=== PATIENT | female | born 1965 | race Two or more races ===

== ENCOUNTER 2024-10-28 13:30 | Outpatient (AMB) | payer MEDICARE, MEDICAID, SELFPAY ==
[2024-10-28 13:38] VITALS: BP 110/71; PULSE 75; RESP 18; TEMP 36.5; O2SAT 93; BMI 39.5
--- NOTE | 2024-10-28 13:38 | PD.RESCLINIC ---
Vital Signs 10/28/24 13:38 Height 1.6 m Height Method Stated Weight 101.151 kg Weight Measurement Method Standing Scale BMI 39.5 BP 110/71 Blood Pressure Source Automatic Cuff Blood Pressure Location Left Upper Arm Position Sitting Respiration 18 Pulse 75 Pulse Source Monitor Temp 97.7 F Temp Source Oral Pulse Oximetry (%) 93 L Oxygen Delivery Method Room Air Allergies/Meds Allergies & Medications Allergies iodine Allergy (Severe, Verified 10/28/24 13:39) Rash Medication Reconciliation ibuprofen 800 mg tablet 800 mg PO TID PRN pain #30 tabs 08/07/23 [Rx Confirmed 10/28/24] diltiazem HCl 180 mg capsule,24 hr,extended release 180 mg PO QAM 06/03/24 [History Confirmed 10/28/24] polyethylene glycol 3350 17 gram oral powder packet 17 g PO QDAY 08/05/24 [History Confirmed 10/28/24] cetirizine 10 mg tablet 10 mg PO QDAY #30 tabs 09/02/24 [Rx Confirmed 10/28/24] cholecalciferol (vitamin D3) 25 mcg (1,000 unit) capsule 25 mcg PO QDAY #30 caps 10/28/24 [Rx] pantoprazole 40 mg tablet,delayed release (Protonix) 40 mg PO QDAY #30 tabs 10/28/24 [Rx] propranolol 20 mg tablet 20 mg PO BID #30 tabs 10/28/24 [Rx] MA Intake Visit Data Collection New Patient or Established: Established Patient (seen at [facility] within 3 years) Seen by Clinical Staff ONLY (RN/MA): No Pain Present Currently: Yes Pain Location: Generalized Pain scale:: 6 Pain Scale Used: [place]es-[place]ial[place]/Numerical PCP or OBGYN visit in last 3 months: Yes Do You Feel Safe at Home: Yes Authorities Contacted: N/A Smoking Status Smoking Status: Never smoker Immunization / Flu Flu Vaccine in the Last 12 Months: No Flu Vaccine Exclusion Criteria: No Exclusion Criteria Past Medical History Past Medical History NEUROLOGIC: Positive Migraine; Negative Neurological Disorders or Seizures CARDIAC: Positive Cardiac Disorders and Hypertension; Negative Congestive Heart Failure, Edema or Cellulitis RESPIRATORY: Positive Asthma, Bronchitis, Pneumonia, Tuberculosis (was treated) and Sleep Apnea; Negative Chronic Obstructive Pulmonary Disease (COPD) GASTROINTESTINAL: Positive Gastrointestinal Disorders (pain right abdomen had ultrasound yesterday), Diverticulitis, Diverticulosis, Gastroesophageal Reflux Disease and Obesity; Negative Hepatitis GENITOURINARY: Negative Genitourinary Disorders or Renal Disease REPRODUCTIVE: Positive Previous Pregnancies; Negative Pelvic Inflammatory Disease MUSCULOSKELETAL: Positive Arthritis and Degenerative Disk Disease ENDOCRINE: Negative Endocrine Disorders, Diabetes Mellitus Type 1 or Diabetes Mellitus Type 2 HEMATOLOGIC: Positive Blood Disorders and Anemia; Negative Sickle Cell Disease PSYCHO/SOCIAL: Positive Anxiety (no meds) OTHER HISTORY: Positive Hospitalization (diverticulosis) and Chicken Pox; Negative Autoimmune Disease, Shingles, Falls, Blood Transfusions, Blood Transfusion Reaction, Anesthesia Reactions, Chemotherapy, Radiation Therapy, MRSA, Measles, Mumps or Cancer Family History FAMILY HISTORY: Positive Family Cancer; Negative Family Psychiatric Problems, Family Respiratory Disorders, Family Cardiac Disorders, Family Gastrointestinal Problems, Family Surgery or Family Anesthesia Reaction Surgical History SURGICAL: Positive Lumpectomy, Tubal Ligation and Section (2); Negative Pacemaker or Joint Replacement Social History SMOKING STATUS: Smoking status: Never smoker ALCOHOL: Alcohol Intake: Never HOUSING: Housing: House Patient Portal Questionaires Social History Living Situation History Housing: House Tobacco History Smoking Status: Never smoker Alcohol History Alcohol Intake: Never Domestic Abuse History Do You Feel Safe at Home: Yes Review of Systems Report any current symptoms Only answer those that you have currently: Past Medical History Past Medical History Have you ever been diagnosed with any of the following: Neurological Problems Seizures: No Migraine: Yes Cardiology Problems Congestive Heart Failure: No Edema: No Cellulitis: No Hypertension: Yes Respiratory Problems Chronic Obstructive Pulmonary Disease (COPD): No Asthma: Yes Bronchitis: Yes Pneumonia: Yes Tuberculosis: Yes (was treated) Sleep Apnea: Yes Stomache/Intestinal Problems Hepatitis: No Diverticulitis: Yes Diverticulosis: Yes Gastroesophageal Reflux Disease: Yes Obesity: Yes Genital/Urinary Problems Renal Disease: No Reproductive Problems Pelvic Inflammatory Disease: No Previous Pregnancies: Yes Musculoskeletal Problems Arthritis: Yes Degenerative Disk Disease: Yes Endocrine Problems Diabetes Mellitus Type 1: No Diabetes Mellitus Type 2: No Blood Problems Anemia: Yes Sickle Cell Disease: No Psychologic Problems Anxiety: Yes (no meds) Other Problems Hospitalization: Yes (diverticulosis) Autoimmune Disease: No Shingles: No Falls: No Blood Transfusions: No Blood Transfusion Reaction: No Anesthesia Reactions: No Chemotherapy: No Radiation Therapy: No MRSA: No Chicken Pox: Yes Measles: No Mumps: No Cancer: No Surgical History Pacemaker: No History of Present Illness HPI Narrative Ms Edie Rizo is a 60 year old female with past medical history of arthritis, HTN on diltiazem, migraines on propanolol, pre-diabetic, asthma, sleep apnea, and fibroids who presents to the clinic to establish care. 08/05/2024: Patient complains of RUQ pain for many years, worst over the last few months. Radiates towards epigastric region. Pain described is constant, with intermittent sharp quality. Sometimes worst after meeting, now without trigger. Associated with nausea, loose stools, floating stool. Was evaluated with an ultrasound in the past and was told had a large and fatty liver. Had bloodwork and was prescribed a medication but never received or picked up. Also complains of burning sensation in her thigh and feet, causing difficulty walking.FH: pancreatic cancer 09/02/2024 Patient is present with niece, Adele. She allows permission for discussion of her current medical conditions with niece in the room.She no longer has any more abdominal pain. Dr. Lanza referred patient to us. She was unable to get an ultrasound of her gallbladder, she believes insurance denied it. She was diagnosed with fibroids not too long ago. Her shipper/receiver did a scrapping procedure and her fibroid associated bleeding resolved. Now, patient no long has abdominal pain or discomfort. Patient also feeling her nerve pain is improving on gabapentin, only endorses numbness of of left hand and 3rd left finger, possible component of carpal tunnel. Patient denies, fever, chills, chest pain, palpitation, shortness of breath, dizziness, nausea, vomiting, diarrhea, or constipation. Will recommend to continue pantoprazole and cock splint for carpal tunnel. 10/28/2024: Patient doing well, endorses occasional burning sensation from GERD after eating and before going to bed. Improved with protonix but patient ran out. Will refill protonix and consider GI consult if symptoms do not improve for possible endoscopy and evaluation. Patient also started [employer] by her [employer] clerk and has had some success on it. Patient also completed 6 week sof physical therapy which she improved her mobility. Ultrasound of the abdomen showed adrenal mass, generally unchanged size from previous scans. Will continue to monitor. Review of Systems Review of Systems Systems Reviewed: All systems reviewed, normal except as documented Objective/Exam Narrative Physical exam: Constitutional: NAD. HEENT: NCAT. Vision grossly intact. Respiratory: CTAB bilaterally. Cardiac: RRR. Abdomen: Soft, non-distended, non-tender. No guarding, no rebound. MSK: No B/L LE edema. Skin: Warm, dry, intact. No obvious lesions. Neuro: Motor and sensation grossly intact. Psychiatric: Appropriate mood and affect. Assessment & Plan Diagnosis / Problem List (1) GERD (gastroesophageal reflux disease): Status: Acute Assessment & Plan: Differential includes GERD (more likely improved on pantoprazole) vs PUD, hiatal hernia Possible etiology of H. pylori. History suggestive of GERD with burning at night in her esophagus, relieved with pantoprazole. Patient sometimes burps and feels filled with gas. Trial protonix helped to confirm GERD. Chem panel 1 month ago not suggestive of obstructive biliary pattern, cholecystitis ruled out. Past colonoscopy in 2019 showed diverticulosis, hemrrhoids, and 1 benign polyp. Amylase is normal. On ibuprofen for arthritis Plan: Refill protonix 40mg Qday. Counselled on diet, avoiding acidic foods, eating before bed or lying down after eating. If symptoms persist, consider GI referral (2) Transaminitis: Status: Acute Assessment & Plan: MASH (nonalcohol related fatty liver disease) is likely in setting of obesity. As seen on previous labs, medications reviwed for hepatotoxic side effects. Denies history alcohol Hepatitis panel nonreactive. Plan: Check LFTs Check lipid panel as well (3) Neuropathy: Status: Chronic Assessment & Plan: History of L5-S1 3 mm right paracentral disc bulge displacing the right S1 nerve root, but patient having bilateral feet and thigh pain. Long-standing pre-diabetic. Plan: Check A1c, no A1c on file Gabapentin refilled (4) Adrenal mass 1 cm to 4 cm in diameter: Status: Chronic Assessment & Plan: 3.5cm unchanged in size from 2018 to 2023 Ultrasound done 09/2024 shows size 4.2 x 3.1 x 3.7 cm Patient asymptomatic Plan: Continue to monitor with radiographic studys every 6 months for 2 years If patient develops symptoms and/or mass begins to grow, consider MRI and additional endocrinology workup Orders: Orders Liver Panel 10/28/24 R74.01 - Elevation of levels of liver transaminase levels Ambulatory Hemoglobin A1C 10/28/24 G62.9 - Polyneuropathy, unspecified Lipid Panel 10/28/24 K76.0 - Fatty (change of) liver, not elsewhere classified, R74.01 - Elevation of levels of liver transaminase levels Additional Assessment Attending note: I, Jairo Salter MD, attest that I was physically present for the dorman portions of the service and evaluated the patient with the resident and I reviewed and discussed the case with the resident and agree with the resident's findings and plans of care as documented above. Improvement in GERD symptoms with PPI, continue for now. Will recheck labs. Continue to follow adrenal adenoma. Jairo Salter MD Physician Billing Established Patient Established Patient: E/M Level 3-CPT 68272 Office Procedures [facility] Level of Care Nursing/Assessment Patient Status: Established Patient Nursing Assessment/Reassessment: Medication Reconciliation, Update PMH in EMR and Vital Signs Coordination of Care: Complex Care and Chronic Disease 1-5, Education Complex Pt/Fam, Results/Orders obtained and Staff clarify orders Established Patient Charge Established Patient Point Assignment: 90 Established Patient Point Charge: EP Level 3 (80-115)
== END 2024-10-28 14:28 | disposition home or self-care (01) ==
LOC: HODAHC 13:30
PROVIDERS: PCP Student in an Organized Health Care Education/Training Program; Referring Provider Student in an Organized Health Care Education/Training Program; Supervising Provider Internal Medicine; Visit Provider Student in an Organized Health Care Education/Training Program
DX: K21.9 Gastro-esophageal reflux disease without esophagitis (principal); R74.01 Elevation of levels of liver transaminase levels; G62.9 Polyneuropathy, unspecified; E27.8 Other specified disorders of adrenal gland
CPT/HCPCS: 99213; G0463

== ENCOUNTER 2024-12-31 11:07 | Outpatient (AMB) | payer MEDICARE, MEDICAID, SELFPAY ==
[2024-12-31 11:23] VITALS: BP 122/81; PULSE 81; RESP 16; TEMP 36.4; O2SAT 95; BMI 38.5
--- NOTE | 2024-12-31 11:23 | ACNOTE_ITS ---
Vital Signs 12/31/24 11:23 Height 1.6 m Height Method Stated Weight 98.486 kg Weight Measurement Method Standing Scale BMI 38.5 BP 122/81 Blood Pressure Source Automatic Cuff Blood Pressure Location Left Upper Arm Position Sitting Respiration 16 Pulse 81 Pulse Source Monitor Temp 97.5 F Temp Source Oral Pulse Oximetry (%) 95 Oxygen Delivery Method Room Air Allergies/Meds Allergies & Medications Allergies iodine Allergy (Severe, Verified 12/31/24 11:24) Rash Medication Reconciliation ibuprofen 800 mg tablet 800 mg PO TID PRN pain #30 tabs 08/07/23 [Rx Confirmed 12/31/24] diltiazem HCl 180 mg capsule,24 hr,extended release 180 mg PO QAM 06/03/24 [History Confirmed 12/31/24] polyethylene glycol 3350 17 gram oral powder packet 17 g PO QDAY 08/05/24 [History Confirmed 12/31/24] cetirizine 10 mg tablet 10 mg PO QDAY #30 tabs 09/02/24 [Rx Confirmed 12/31/24] cholecalciferol (vitamin D3) 25 mcg (1,000 unit) capsule 25 mcg PO QDAY #30 caps 10/28/24 [Rx Confirmed 12/31/24] pantoprazole 40 mg tablet,delayed release (Protonix) 40 mg PO QDAY #30 tabs 10/28/24 [Rx Confirmed 12/31/24] propranolol 20 mg tablet 20 mg PO BID #30 tabs 10/28/24 [Rx Confirmed 12/31/24] acetaminophen 500 mg tablet 500 mg PO Q6H PRN Pain #30 tabs 12/31/24 [Rx] celecoxib 100 mg capsule 100 mg PO BID PRN breakthrough pain, severe #20 caps 12/31/24 [Rx] MA Intake Visit Data Collection New Patient or Established: Established Patient (seen at [facility] within 3 years) Seen by Clinical Staff ONLY (RN/MA): No Pain Present Currently: Yes Pain Location: Back Pain scale:: 6 Pain Scale Used: [employer]/Numerical Agricultural Engineering Technologist Required: No PCP or OBGYN visit in last 3 months: Yes Hx Now: No Do You Feel Safe at Home: Yes Authorities Contacted: N/A Smoking Status Smoking Status: Never smoker Immunization / Flu Flu Vaccine in the Last 12 Months: No Flu Vaccine Exclusion Criteria: No Exclusion Criteria Past Medical History Past Medical History NEUROLOGIC: Positive Migraine; Negative Neurological Disorders or Seizures CARDIAC: Positive Cardiac Disorders and Hypertension; Negative Congestive Heart Failure, Edema or Cellulitis RESPIRATORY: Positive Asthma, Bronchitis, Pneumonia, Tuberculosis (was treated) and Sleep Apnea; Negative Chronic Obstructive Pulmonary Disease (COPD) GASTROINTESTINAL: Positive Gastrointestinal Disorders (pain right abdomen had ultrasound yesterday), Diverticulitis, Diverticulosis, Gastroesophageal Reflux Disease and Obesity; Negative Hepatitis GENITOURINARY: Negative Genitourinary Disorders or Renal Disease REPRODUCTIVE: Positive Previous Pregnancies; Negative Pelvic Inflammatory Disease MUSCULOSKELETAL: Positive Arthritis and Degenerative Disk Disease ENDOCRINE: Negative Endocrine Disorders, Diabetes Mellitus Type 1 or Diabetes Mellitus Type 2 HEMATOLOGIC: Positive Blood Disorders and Anemia; Negative Sickle Cell Disease PSYCHO/SOCIAL: Positive Anxiety (no meds) OTHER HISTORY: Positive Hospitalization (diverticulosis) and Chicken Pox; Negative Autoimmune Disease, Shingles, Falls, Blood Transfusions, Blood Transfusion Reaction, Anesthesia Reactions, Chemotherapy, Radiation Therapy, MRSA, Measles, Mumps or Cancer Family History FAMILY HISTORY: Positive Family Cancer; Negative Family Psychiatric Problems, Family Respiratory Disorders, Family Cardiac Disorders, Family Gastrointestinal Problems, Family Surgery or Family Anesthesia Reaction Surgical History SURGICAL: Positive Lumpectomy, Tubal Ligation and Section (2); Negative Pacemaker or Joint Replacement Social History SMOKING STATUS: Smoking status: Never smoker ALCOHOL: Alcohol Intake: Never HOUSING: Housing: House Patient Portal Questionaires Social History Living Situation History Housing: House Tobacco History Smoking Status: Never smoker Alcohol History Alcohol Intake: Never Domestic Abuse History Do You Feel Safe at Home: Yes Review of Systems Report any current symptoms Only answer those that you have currently: Past Medical History Past Medical History Have you ever been diagnosed with any of the following: Neurological Problems Seizures: No Migraine: Yes Cardiology Problems Congestive Heart Failure: No Edema: No Cellulitis: No Hypertension: Yes Respiratory Problems Chronic Obstructive Pulmonary Disease (COPD): No Asthma: Yes Bronchitis: Yes Pneumonia: Yes Tuberculosis: Yes (was treated) Sleep Apnea: Yes Stomache/Intestinal Problems Hepatitis: No Diverticulitis: Yes Diverticulosis: Yes Gastroesophageal Reflux Disease: Yes Obesity: Yes Genital/Urinary Problems Renal Disease: No Reproductive Problems Pelvic Inflammatory Disease: No Previous Pregnancies: Yes Musculoskeletal Problems Arthritis: Yes Degenerative Disk Disease: Yes Endocrine Problems Diabetes Mellitus Type 1: No Diabetes Mellitus Type 2: No Blood Problems Anemia: Yes Sickle Cell Disease: No Psychologic Problems Anxiety: Yes (no meds) Other Problems Hospitalization: Yes (diverticulosis) Autoimmune Disease: No Shingles: No Falls: No Blood Transfusions: No Blood Transfusion Reaction: No Anesthesia Reactions: No Chemotherapy: No Radiation Therapy: No MRSA: No Chicken Pox: Yes Measles: No Mumps: No Cancer: No Surgical History Pacemaker: No History of Present Illness HPI Narrative Ms Edie Rizo is a 60 year old female with past medical history of arthritis, HTN on diltiazem, migraines on propanolol, pre-diabetic, asthma, sleep apnea, and fibroids who presents to the clinic to establish care. 08/05/2024: Patient complains of RUQ pain for many years, worst over the last few months. Radiates towards epigastric region. Pain described is constant, with intermittent sharp quality. Sometimes worst after meeting, now without trigger. Associated with nausea, loose stools, floating stool. Was evaluated with an ultrasound in the past and was told had a large and fatty liver. Had bloodwork and was prescribed a medication but never received or picked up. Also complains of burning sensation in her thigh and feet, causing difficulty walking.FH: pancreatic cancer 09/02/2024 Patient is present with niece, Adele. She allows permission for discussion of her current medical conditions with niece in the room.She no longer has any more abdominal pain. Dr. Lanza referred patient to us. She was unable to get an ultrasound of her gallbladder, she believes insurance denied it. She was diagnosed with fibroids not too long ago. Her security architect did a scrapping procedure and her fibroid associated bleeding resolved. Now, patient no long has abdominal pain or discomfort. Patient also feeling her nerve pain is improving on gabapentin, only endorses numbness of of left hand and 3rd left finger, possible component of carpal tunnel. Patient denies, fever, chills, chest pain, palpitation, shortness of breath, dizziness, nausea, vomiting, diarrhea, or constipation. Will recommend to continue pantoprazole and cock splint for carpal tunnel. 10/28/2024: Patient doing well, endorses occasional burning sensation from GERD after eating and before going to bed. Improved with protonix but patient ran out. Will refill protonix and consider GI consult if symptoms do not improve for possible endoscopy and evaluation. 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 Patient also completed 6 week sof physical therapy which she improved her mobility. Ultrasound of the abdomen showed adrenal mass, generally unchanged size from previous scans. Will continue to monitor. 12/31/2024: The patient presented with chief complaint of right flank pain for the past 2 days. She denied any accident or ground-level fall. She reported that she had 1 episode of variance color urine yesterday, but denied any burning, frequency or urgency of urination. She also denied any headache, nausea or vomiting, any changes in bowel habit, fever or chills. The patient is a known case of right adrenal mass greater than 4 cm. CBC, CMP, UA urine culture and MRI of adrenal gland with contrast and postcontrast ordered. Was given acetaminophen 500 Mg up to 4 times a day as needed for pain and celecoxib 100 Mg twice daily as needed for breakthrough pain. Patient was referred to squad boss Dr. Chavez. We will follow-up the patient in 2 to 3 weeks. Review of Systems Review of Systems Systems Reviewed: All systems reviewed, normal except as documented Objective/Exam Narrative Physical exam: General: Morbidly obese female, cooperative, no acute distress, Alert and Oriented x 3 HEENT: Moist mucous membranes, oropharynx clear Neck: Supple, No masses, No JVD CVS: S1S2 Regular rate and rhythm, No murmurs, rubs or gallops Lungs: Clear to auscultation with no accessory use, no wheeze no rhonchi Abd: Soft, NT/ND, +BS, no organomegaly, right flank tenderness Ext: No edema, warm and well perfused Skin: No rash Psych: Appropriate mood and affect Assessment & Plan Diagnosis / Problem List (1) Adrenal mass 1 cm to 4 cm in diameter: Status: Chronic Assessment & Plan: 3.5cm unchanged in size from 2018 to 2023 Ultrasound done 09/2024 shows size 4.2 x 3.1 x 3.7 cm Patient complained of severe pain and was found to have severe tenderness over right flank Plan: -CBC, CMP, UA urine culture ordered -MRI of adrenal gland with contrast and postcontrast ordered. -Was given acetaminophen 500 Mg up to 4 times a day as needed for pain and celecoxib 100 Mg twice daily as needed for breakthrough pain. -Patient was referred to squad boss Dr. Chavez. -We will follow-up the patient in 2 to 3 weeks. (2) UTI (urinary tract infection): Status: Acute Assessment & Plan: Possibility of complicated UTI 2/2 pyelonephritis, as has severe tenderness of rt flank, with orange colored urine. Plan: -UA ordered -UCx ordered -Adequate hydration -Pain management with tylenol and celecoxib (3) GERD (gastroesophageal reflux disease): Status: Acute Assessment & Plan: Differential includes GERD (more likely improved on pantoprazole) vs PUD, hiatal hernia Possible etiology of H. pylori. History suggestive of GERD with burning at night in her esophagus, relieved with pantoprazole. Patient sometimes burps and feels filled with gas. Trial protonix helped to confirm GERD. Chem panel 1 month ago not suggestive of obstructive biliary pattern, cholecystitis ruled out. Past colonoscopy in 2019 showed diverticulosis, hemrrhoids, and 1 benign polyp. Amylase is normal. On ibuprofen for arthritis Plan: Counselled on diet, avoiding acidic foods, eating before bed or lying down after eating. If symptoms persist, consider GI referral (4) Transaminitis: Status: Acute Assessment & Plan: MASH (nonalcohol related fatty liver disease) is likely in setting of obesity. As seen on previous labs, medications reviwed for hepatotoxic side effects. Denies history alcohol Hepatitis panel nonreactive. Plan: -Repeat LFTs (5) Neuropathy: Status: Chronic Assessment & Plan: History of L5-S1 3 mm right paracentral disc bulge displacing the right S1 nerve root, but patient having bilateral feet and thigh pain. Long-standing pre-di abetic. Plan: Continue Gabapentin Plan The patient's management plan was discussed with my attending MD Tevin Carey MD PGY2, Internal Medicine Orders: Orders Urinalysis 12/31/24 E27.8 - Other specified disorders of adrenal gland Urine Culture 12/31/24 N39.0 - Urinary tract infection, site not specified MR abdomen wo/w con 01/25/25 E27.8 - Other specified disorders of adrenal gland Comprehensive Metabolic Panel 12/31/24 R74.01 - Elevation of levels of liver transaminase levels CBC 12/31/24 E27.8 - Other specified disorders of adrenal gland Referrals Endocrinology E27.8 - Other specified disorders of adrenal gland Additional Assessment Internal Medicine Attending Note: Case discussed with and agree with note and management plan of Resident Physician as per Resident's Note above. Issues of concern for present visit are as follows: Follow-up visit. Patient complaining of right flank pain for 2 days. No trauma. Did have some change in color of urine. Known right adrenal mass. Patient is afebrile with stable vital signs on examination today. Cause of flank pain not clear. Consider UTI/nephrolithiasis/pyelonephritis. We will check a CBC, CMP, urinalysis with reflex to culture. Given that her pain is in the area of the known adrenal mass, we will pursue further imaging with an MRI of the adrenal gland with pre and postcontrast images. Will make referral to endocrinology for further evaluation of the mass, suspect adenoma given that size has not changed from previous scans on the most recently available imaging, does not appear to be functional. Tylenol and as needed NSAID for pain for now. Previously noted transaminitis will be reevaluated with CMP today. Jairo Salter MD Physician Billing Established Patient Established Patient: E/M Level 3-CPT 94834 Office Procedures [facility] Level of Care Nursing/Assessment Patient Status: Established Patient Nursing Assessment/Reassessment: Medication Reconciliation, Update PMH in EMR and Vital Signs Coordination of Care: Complex Care and Chronic Disease 1-5, Consent,records obtained, informed consent, Education Simp Pt/Fam, Lab and Imaging orders and Staff clarify orders Established Patient Charge Established Patient Point Assignment: 100 Established Patient Point Charge: EP Level 3 (80-115)
== END 2024-12-31 12:17 | disposition home or self-care (01) ==
LOC: HODAHC 11:07
PROVIDERS: Supervising Provider Internal Medicine; Visit Provider Student in an Organized Health Care Education/Training Program
DX: N39.0 Urinary tract infection, site not specified (principal); K21.9 Gastro-esophageal reflux disease without esophagitis; R74.01 Elevation of levels of liver transaminase levels; G62.9 Polyneuropathy, unspecified; E27.8 Other specified disorders of adrenal gland
CPT/HCPCS: 99213; G0463

== ENCOUNTER → 2025-01-21 | Outpatient (CLI) | payer MEDICARE, MEDICAID, SELFPAY ==
[2025-01-21 14:19] LABS: Basophils # (Auto) 0.1 Thou/mm3 (0.0-0.2); Basophils % (Auto) 1 % (0-2.5); Eosinophils # (Auto) 0.2 Thou/mm3 (0.0-0.5); Eosinophils % (Auto) 3 % (0-10); Hematocrit 42.3 % (36.0-46.0); Hemoglobin 14.2 g/dL (12.0-16.0); Immature Granulocytes % (Auto) 0 % (0-0); Immature Granulocytes Auto 0.01 Thou/mm3 (0.00-0.00); Lymphocytes # (Auto) 2.2 Thou/mm3 (1.0-4.8); Lymphocytes % (Auto) 30 % (10-50); Mean Corpuscular HGB Conc 33.6 g/dl (31.0-37.0); Mean Corpuscular Hemoglobin 31.1 pg (25.0-35.0); Mean Corpuscular Volume 93 fL (80-100); Monocytes # (Auto) 0.6 Thou/mm3 (0.0-0.8); Monocytes % (Auto) 9 % (0-12); Neutrophils % (Auto) 57 % (37-80); Nucleated Red Blood Cell % 0 /100 WBC (0); Platelet Count 304 Thou/mm3 (140-440); Red Blood Count 4.57 Miln/mm3 (4.00-5.20); White Blood Count 7.1 Thou/mm3 (3.6-11.0)
[2025-01-21 14:31] LABS: Alanine Aminotransferase 68 U/L (10-49); Albumin, Serum 4.5 gm/dL (3.5-5.0); Albumin/Globulin Ratio 1.6 (1.2-2.2); Alkaline Phosphatase 105 U/L (46-116); Anion Gap 9 (7-16); Aspartate Amino Transferase 64 U/L (0-34); BUN/Creatinine Ratio 16 Ratio (12-20); Bilirubin,Total 0.5 mg/dL (0.3-1.2); Blood Urea Nitrogen 13 mg/dL (9-23); Calcium 10.2 mg/dL (8.3-10.6); Calcium (Corrected) 10.2 mg/dL (8.5-10.1); Carbon Dioxide 27.9 mMol/L (20.0-31.0); Chloride 106 mMol/L (98-107); Creatinine (Component) 0.8 mg/dL (0.6-1.3); Globulin 2.8 gm/dL (2.3-3.5); Glucose 97 mg/dL (74-106); Osmolality,Calculated 285 (275-295); Potassium 4.4 mMol/L (3.4-5.1); Sodium 143 mMol/L (136-145); Total Protein 7.3 gm/dL (5.7-8.2); eGFR > 60 See Note
[2025-01-21 16:19] LABS: Collection Type, Urine Clean Catch
[2025-01-21 16:47] LABS: Bilirubin,Urine Negative (Negative); Blood,Urine Negative (Negative); Clarity,Urine Turbid (Clear/Hazy); Color,Urine Yellow (Lt Yel-Yel); Glucose, Urine Negative (Negative); Ketones,Urine Negative (Negative); Leukocyte Esterase,Urine Positive (Negative); Nitrite,Urine Negative (Negative); Protein,Urine Trace (Neg - Trace); RBC,Urine 5 /hpf (0-3); Specific Gravity,Urine 1.031 (1.001-1.035); Squamous Epithelial Cell,Urine 9 /hpf (0-5); Urobilinogen,Urine Negative mg/dL (0.0-1.0); WBC,Urine 4 /hpf (0-5)
== END | disposition home or self-care (01) ==
PROVIDERS: PCP Student in an Organized Health Care Education/Training Program; Referring Provider Student in an Organized Health Care Education/Training Program; Visit Provider Student in an Organized Health Care Education/Training Program
DX: N39.0 Urinary tract infection, site not specified (principal); R74.01 Elevation of levels of liver transaminase levels
CPT/HCPCS: 36415; 80053; 81001; 85025; 87086

== ENCOUNTER → 2025-01-25 | Outpatient (CLI) | payer MEDICARE, MEDICAID, SELFPAY | END | disposition home or self-care (01) | LOC: SMRI 08:59 | PROVIDERS: PCP Student in an Organized Health Care Education/Training Program; Referring Provider Psychiatry & Neurology Neurology; Visit Provider Student in an Organized Health Care Education/Training Program | DX: Z53.29 Procedure and treatment not carried out because of patient's decision for other reasons (principal) ==

== ENCOUNTER 2025-01-27 13:29 | Outpatient (AMB) | payer MEDICARE, MEDICAID, SELFPAY ==
[2025-01-27 13:40] VITALS: BP 124/83; PULSE 75; RESP 16; TEMP 36.4; O2SAT 95; BMI 42.4
--- NOTE | 2025-01-27 13:40 | ACNOTE_ITS ---
Vital Signs 01/27/25 13:40 Height 5 ft Height Method Stated Weight 98.6 kg Weight Measurement Method Standing Scale BMI 42.4 BP 124/83 Blood Pressure Source Automatic Cuff Blood Pressure Location Left Upper Arm Position Sitting Respiration 16 Pulse 75 Pulse Source Monitor Temp 97.6 F Temp Source Temporal Artery Scan Pulse Oximetry (%) 95 Oxygen Delivery Method Room Air Allergies/Meds Allergies & Medications Allergies iodine Allergy (Severe, Verified 01/27/25 13:41) Rash Medication Reconciliation ibuprofen 800 mg tablet 800 mg PO TID PRN pain #30 tabs 08/07/23 [Rx Confirmed 01/27/25] diltiazem HCl 180 mg capsule,24 hr,extended release 180 mg PO QAM 06/03/24 [History Confirmed 01/27/25] polyethylene glycol 3350 17 gram oral powder packet 17 g PO QDAY 08/05/24 [History Confirmed 01/27/25] cetirizine 10 mg tablet 10 mg PO QDAY #30 tabs 09/02/24 [Rx Confirmed 01/27/25] cholecalciferol (vitamin D3) 25 mcg (1,000 unit) capsule 25 mcg PO QDAY #30 caps 10/28/24 [Rx Confirmed 01/27/25] pantoprazole 40 mg tablet,delayed release (Protonix) 40 mg PO QDAY #30 tabs 10/28/24 [Rx Confirmed 01/27/25] propranolol 20 mg tablet 20 mg PO BID #30 tabs 10/28/24 [Rx Confirmed 01/27/25] acetaminophen 500 mg tablet 500 mg PO Q6H PRN Pain #30 tabs 12/31/24 [Rx Confirmed 01/27/25] celecoxib 100 mg capsule 100 mg PO BID PRN breakthrough pain, severe #20 caps 12/31/24 [Rx Confirmed 01/27/25] MA Intake Visit Data Collection New Patient or Established: Established Patient (seen at [facility] within 3 years) Seen by Clinical Staff ONLY (RN/MA): No Pain Present Currently: No Pain scale:: 0 Pain Scale Used: [employer]/Numerical Software Release Manager Required: No PCP or OBGYN visit in last 3 months: Yes Hx Now: No Do You Feel Safe at Home: Yes Authorities Contacted: N/A Smoking Status Smoking Status: Never smoker Immunization / Flu Flu Vaccine in the Last 12 Months: No Flu Vaccine Exclusion Criteria: No Exclusion Criteria Past Medical History Past Medical History NEUROLOGIC: Positive Migraine; Negative Neurological Disorders or Seizures CARDIAC: Positive Cardiac Disorders and Hypertension; Negative Congestive Heart Failure, Edema or Cellulitis RESPIRATORY: Positive Asthma, Bronchitis, Pneumonia, Tuberculosis (was treated) and Sleep Apnea; Negative Chronic Obstructive Pulmonary Disease (COPD) GASTROINTESTINAL: Positive Gastrointestinal Disorders (pain right abdomen had ultrasound yesterday), Diverticulitis, Diverticulosis, Gastroesophageal Reflux Disease and Obesity; Negative Hepatitis GENITOURINARY: Negative Genitourinary Disorders or Renal Disease REPRODUCTIVE: Positive Previous Pregnancies; Negative Pelvic Inflammatory Disease MUSCULOSKELETAL: Positive Arthritis and Degenerative Disk Disease ENDOCRINE: Negative Endocrine Disorders, Diabetes Mellitus Type 1 or Diabetes Mellitus Type 2 HEMATOLOGIC: Positive Blood Disorders and Anemia; Negative Sickle Cell Disease PSYCHO/SOCIAL: Positive Anxiety (no meds) OTHER HISTORY: Positive Hospitalization (diverticulosis) and Chicken Pox; Negative Autoimmune Disease, Shingles, Falls, Blood Transfusions, Blood Transfusion Reaction, Anesthesia Reactions, Chemotherapy, Radiation Therapy, MRSA, Measles, Mumps or Cancer Family History FAMILY HISTORY: Positive Family Cancer; Negative Family Psychiatric Problems, Family Respiratory Disorders, Family Cardiac Disorders, Family Gastrointestinal Problems, Family Surgery or Family Anesthesia Reaction Surgical History SURGICAL: Positive Lumpectomy, Tubal Ligation and Section (2); Negative Pacemaker or Joint Replacement Social History SMOKING STATUS: Smoking status: Never smoker ALCOHOL: Alcohol Intake: Never HOUSING: Housing: House Patient Portal Questionaires PHQ-9 PHQ-2 Over the last 2 weeks, how often have you been bothered by any of the following problems? 1. Little interest or pleasure in doing things: not at all 2. Feeling down, depressed, or hopeless: not at all Total score: 0 PHQ-9 3. Trouble falling or staying asleep, or sleeping too much: Not at all 4. Feeling tired or having little energy: Not at all 5. Poor appetite or overeating: Not at all 6. Feeling bad about yourself - or that you are a failure or have let yourself or your family down: Not at all 7. Trouble concentrating on things, such as reading the newspaper or watching television: Not at all 8. Moving or speaking so slowly that other people could have noticed? - Or the opposite - being so fidgety or restless that you have been moving around a lot more than usual: not at all 9. Thoughts that you would be better off or of hurting yourself in some way: Not at all Total score: 0 Source: Developed by Drs. Momo Russell, Latoya Flores, Pradeep Alvarado and colleagues, with an educational miley from [employer]. Depression screen completed yes Social History Living Situation History Housing: House Tobacco History Smoking Status: Never smoker Alcohol History Alcohol Intake: Never Domestic Abuse History Do You Feel Safe at Home: Yes Review of Systems Report any current symptoms Only answer those that you have currently: Past Medical History Past Medical History Have you ever been diagnosed with any of the following: Neurological Problems Seizures: No Migraine: Yes Cardiology Problems Congestive Heart Failure: No Edema: No Cellulitis: No Hypertension: Yes Respiratory Problems Chronic Obstructive Pulmonary Disease (COPD): No Asthma: Yes Bronchitis: Yes Pneumonia: Yes Tuberculosis: Yes (was treated) Sleep Apnea: Yes Stomache/Intestinal Problems Hepatitis: No Diverticulitis: Yes Diverticulosis: Yes Gastroesophageal Reflux Disease: Yes Obesity: Yes Genital/Urinary Problems Renal Disease: No Reproductive Problems Pelvic Inflammatory Disease: No Previous Pregnancies: Yes Musculoskeletal Problems Arthritis: Yes Degenerative Disk Disease: Yes Endocrine Problems Diabetes Mellitus Type 1: No Diabetes Mellitus Type 2: No Blood Problems Anemia: Yes Sickle Cell Disease: No Psychologic Problems Anxiety: Yes (no meds) Other Problems Hospitalization: Yes (diverticulosis) Autoimmune Disease: No Shingles: No Falls: No Blood Transfusions: No Blood Transfusion Reaction: No Anesthesia Reactions: No Chemotherapy: No Radiation Therapy: No MRSA: No Chicken Pox: Yes Measles: No Mumps: No Cancer: No Surgical History Pacemaker: No History of Present Illness HPI Narrative Ms Edie Rizo is a 60 year old female with past medical history of arthritis, HTN on diltiazem, migraines on propanolol, pre-diabetic, asthma, sleep apnea, and fibroids who presents to the clinic to establish care. 08/05/2024: Patient complains of RUQ pain for many years, worst over the last few months. Radiates towards epigastric region. Pain described is constant, with intermittent sharp quality. Sometimes worst after meeting, now without trigger. Associated with nausea, loose stools, floating stool. Was evaluated with an ultrasound in the past and was told had a large and fatty liver. Had bloodwork and was prescribed a medication but never received or picked up. Also complains of burning sensation in her thigh and feet, causing difficulty walking.FH: pancreatic cancer 09/02/2024 Patient is present with niece, Adele. She allows permission for discussion of her current medical conditions with niece in the room.She no longer has any more abdominal pain. Dr. Lanza referred patient to us. She was unable to get an ultrasound of her gallbladder, she believes insurance denied it. She was diagnosed with fibroids not too long ago. Her certified veterinary technician did a scrapping procedure and her fibroid associated bleeding resolved. Now, patient no long has abdominal pain or discomfort. Patient also feeling her nerve pain is improving on gabapentin, only endorses numbness of of left hand and 3rd left finger, possible component of carpal tunnel. Patient denies, fever, chills, chest pain, palpitation, shortness of breath, dizziness, nausea, vomiting, diarrhea, or constipation. Will recommend to continue pantoprazole and cock splint for carpal tunnel. 10/28/2024: Patient doing well, endorses occasional burning sensation from GERD after eating and before going to bed. Improved with protonix but patient ran out. Will refill protonix and consider GI consult if symptoms do not improve for possible endoscopy and evaluation. Patient also started Wegovy by her laboratory inspector and has had some success on it. Patient also completed 6 week sof physical therapy which she improved her mobility. Ultrasound of the abdomen showed adrenal mass, generally unchanged size from previous scans. Will continue to monitor. 12/31/2024: The patient presented with chief complaint of right flank pain for the past 2 days. She denied any accident or ground-level fall. She reported that she had 1 episode of variance color urine yesterday, but denied any burning, frequency or urgency of urination. She also denied any headache, nausea or vomiting, any changes in bowel habit, fever or chills. The patient is a known case of right adrenal mass greater than 4 cm. CBC, CMP, UA urine culture and MRI of adrenal gland with contrast and postcontrast ordered. Was given acetaminophen 500 Mg up to 4 times a day as needed for pain and celecoxib 100 Mg twice daily as needed for breakthrough pain. Patient was referred to inventory specialist Dr. Chavez. We will follow-up the patient in 2 to 3 weeks. 01/27/2025: Patient had labs done, CBC and CMP generally unremarkable other than slightly elevated AST and ALT. Patient tried for MRI but was claustrophobic. Patient does not want to undergo MRI. Continues to complain of R flank pain relieved with NSAIDs. Endorses drinking water and cranberry juice. UA unremarkable. Will get CT scan of abdomen pelvis to assess stable adrenal mass, kidney to check for kidney stone, and liver for elevated liver enzymes. Review of Systems Review of Systems Systems Reviewed: All systems reviewed, normal except as documented Objective/Exam Narrative Physical exam: Constitutional: NAD. Awake, alert, pleasant. HEENT: NCAT. Vision grossly intact. Mucous membranes moist. Respiratory: CTAB bilaterally. Cardiac: RRR. Abdomen: Soft, non-distended. MSK: No B/L LE edema. R paralumbar pain to palpation. Skin: Warm, dry, intact. No obvious lesions. Neuro: Motor and sensation grossly intact. Psychiatric: Appropriate mood and affect. 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 Chavez. (3) GERD (gastroesophageal reflux disease): Status: Chronic Assessment & Plan: Past colonoscopy in 2019 showed diverticulosis, hemrrhoids, and 1 benign polyp. Plan: Continue protonix (4) Transaminitis: Status: Acute Assessment & Plan: MASH (nonalcohol related fatty liver disease) is likely in setting of obesity. As seen on previous labs, medications reviwed for hepatotoxic side effects. Denies history alcohol, smoking Hepatitis panel nonreactive. Plan: Recheck in a few months annual labs CT abdomen pelvis (5) Neuropathy: Status: Chronic Assessment & Plan: History of L5-S1 3 mm right paracentral disc bulge displacing the right S1 nerve root, but patient having bilateral feet and thigh pain. Long-standing pre- diabetic. Plan: Continue Gabapentin Orders: Orders CT abdomen pelvis wo con Today R10.9 - Unspecified abdominal pain, R74.8 - Abnormal levels of other serum enzymes Office Procedures [facility] Level of Care Nursing/Assessment Patient Status: Established Patient Nursing Assessment/Reassessment: Medication Reconciliation, Update PMH in EMR and Vital Signs Coordination of Care: Complex Care and Chronic Disease 1-5, Consent,records obtained, informed consent, Education Simp Pt/Fam, Results/Orders obtained and Staff clarify orders Established Patient Charge Established Patient Point Assignment: 90 Established Patient Point Charge: EP Level 3 (80-115)
== END 2025-01-27 14:01 | disposition home or self-care (01) ==
LOC: HODAHC 13:29
PROVIDERS: PCP Student in an Organized Health Care Education/Training Program; Referring Provider Student in an Organized Health Care Education/Training Program; Supervising Provider Internal Medicine; Visit Provider Student in an Organized Health Care Education/Training Program
DX: R10.9 Unspecified abdominal pain (principal); R74.8 Abnormal levels of other serum enzymes; E27.8 Other specified disorders of adrenal gland; G62.9 Polyneuropathy, unspecified
CPT/HCPCS: 99213; G0463

== ENCOUNTER 2025-03-05 10:47 | Outpatient (AMB) | payer MEDICARE, MEDICAID, SELFPAY ==
[2025-03-05 10:54] VITALS: BP 100/69; PULSE 78; RESP 16; TEMP 36.8; O2SAT 90; BMI 41.7
--- NOTE | 2025-03-05 10:54 | ACNOTE_ITS ---
Vital Signs 03/05/25 10:54 Height 1.52 m Height Method Stated Weight 96.388 kg Weight Measurement Method Standing Scale BMI 41.7 BP 100/69 Blood Pressure Source Automatic Cuff Blood Pressure Location Left Upper Arm Position Sitting Respiration 16 Pulse 78 Pulse Source Monitor Temp 98.2 F Temp Source Temporal Artery Scan Pulse Oximetry (%) 90 L Oxygen Delivery Method Room Air Allergies/Meds Allergies & Medications Allergies iodine Allergy (Severe, Verified 03/05/25 10:56) Rash Medication Reconciliation ibuprofen 800 mg tablet 800 mg PO TID PRN pain #30 tabs 08/07/23 [Rx Confirmed 03/05/25] diltiazem HCl 180 mg capsule,24 hr,extended release 180 mg PO QAM 06/03/24 [History Confirmed 03/05/25] polyethylene glycol 3350 17 gram oral powder packet 17 g PO QDAY 08/05/24 [History Confirmed 03/05/25] cetirizine 10 mg tablet 10 mg PO QDAY #30 tabs 09/02/24 [Rx Confirmed 03/05/25] cholecalciferol (vitamin D3) 25 mcg (1,000 unit) capsule 25 mcg PO QDAY #30 caps 10/28/24 [Rx Confirmed 03/05/25] pantoprazole 40 mg tablet,delayed release (Protonix) 40 mg PO QDAY #30 tabs 10/28/24 [Rx Confirmed 03/05/25] acetaminophen 500 mg tablet 500 mg PO Q6H PRN Pain #30 tabs 12/31/24 [Rx Confirmed 03/05/25] celecoxib 100 mg capsule 100 mg PO BID PRN breakthrough pain, severe #20 caps 12/31/24 [Rx Confirmed 03/05/25] amoxicillin 500 mg capsule 500 mg PO TID 7 days #21 caps 03/05/25 [Rx] guaifenesin 600 mg tablet, extended release 12 hr (Mucinex) 600 mg PO Q12H PRN cough #14 tabs 03/05/25 [Rx] MA Intake Visit Data Collection New Patient or Established: Established Patient (seen at [facility] within 3 years) Seen by Clinical Staff ONLY (RN/SPENCER): No Pain Present Currently: No Pain scale:: 0 Pain Scale Used: [employer]/Numerical Patient Intake Representative Required: No PCP or OBGYN visit in last 3 months: No Hx Now: No Do You Feel Safe at Home: Yes Authorities Contacted: N/A Smoking Status Smoking Status: Never smoker Immunization / Flu Flu Vaccine in the Last 12 Months: No Flu Vaccine Exclusion Criteria: No Exclusion Criteria Past Medical History Past Medical History NEUROLOGIC: Positive Migraine; Negative Neurological Disorders or Seizures CARDIAC: Positive Cardiac Disorders and Hypertension; Negative Congestive Heart Failure, Edema or Cellulitis RESPIRATORY: Positive Asthma, Bronchitis, Pneumonia, Tuberculosis (was treated) and Sleep Apnea; Negative Chronic Obstructive Pulmonary Disease (COPD) GASTROINTESTINAL: Positive Gastrointestinal Disorders (pain right abdomen had ultrasound yesterday), Diverticulitis, Diverticulosis, Gastroesophageal Reflux Disease and Obesity; Negative Hepatitis GENITOURINARY: Negative Genitourinary Disorders or Renal Disease REPRODUCTIVE: Positive Previous Pregnancies; Negative Pelvic Inflammatory Disease MUSCULOSKELETAL: Positive Arthritis and Degenerative Disk Disease ENDOCRINE: Negative Endocrine Disorders, Diabetes Mellitus Type 1 or Diabetes Mellitus Type 2 HEMATOLOGIC: Positive Blood Disorders and Anemia; Negative Sickle Cell Disease PSYCHO/SOCIAL: Positive Anxiety (no meds) OTHER HISTORY: Positive Hospitalization (diverticulosis) and Chicken Pox; Negative Autoimmune Disease, Shingles, Falls, Blood Transfusions, Blood Transfusion Reaction, Anesthesia Reactions, Chemotherapy, Radiation Therapy, MRSA, Measles, Mumps or Cancer Family History FAMILY HISTORY: Positive Family Cancer; Negative Family Psychiatric Problems, Family Respiratory Disorders, Family Cardiac Disorders, Family Gastrointestinal Problems, Family Surgery or Family Anesthesia Reaction Surgical History SURGICAL: Positive Lumpectomy, Tubal Ligation and Section (2); Negative Pacemaker or Joint Replacement Social History SMOKING STATUS: Smoking status: Never smoker ALCOHOL: Alcohol Intake: Never HOUSING: Housing: House Patient Portal Questionaires PHQ-9 PHQ-2 Over the last 2 weeks, how often have you been bothered by any of the following problems? 1. Little interest or pleasure in doing things: not at all PHQ-9 8. Moving or speaking so slowly that other people could have noticed? - Or the opposite - being so fidgety or restless that you have been moving around a lot more than usual: not at all Source: Developed by Drs. Momo Russell, Latoya Flores, Pradeep Alvarado and colleagues, with an educational miley from [employer]. Social History Living Situation History Housing: House Tobacco History Smoking Status: Never smoker Alcohol History Alcohol Intake: Never Domestic Abuse History Do You Feel Safe at Home: Yes Review of Systems Report any current symptoms Only answer those that you have currently: Past Medical History Past Medical History Have you ever been diagnosed with any of the following: Neurological Problems Seizures: No Migraine: Yes Cardiology Problems Congestive Heart Failure: No Edema: No Cellulitis: No Hypertension: Yes Respiratory Problems Chronic Obstructive Pulmonary Disease (COPD): No Asthma: Yes Bronchitis: Yes Pneumonia: Yes Tuberculosis: Yes (was treated) Sleep Apnea: Yes Stomache/Intestinal Problems Hepatitis: No Diverticulitis: Yes Diverticulosis: Yes Gastroesophageal Reflux Disease: Yes Obesity: Yes Genital/Urinary Problems Renal Disease: No Reproductive Problems Pelvic Inflammatory Disease: No Previous Pregnancies: Yes Musculoskeletal Problems Arthritis: Yes Degenerative Disk Disease: Yes Endocrine Problems Diabetes Mellitus Type 1: No Diabetes Mellitus Type 2: No Blood Problems Anemia: Yes Sickle Cell Disease: No Psychologic Problems Anxiety: Yes (no meds) Other Problems Hospitalization: Yes (diverticulosis) Autoimmune Disease: No Shingles: No Falls: No Blood Transfusions: No Blood Transfusion Reaction: No Anesthesia Reactions: No Chemotherapy: No Radiation Therapy: No MRSA: No Chicken Pox: Yes Measles: No Mumps: No Cancer: No Surgical History Pacemaker: No History of Present Illness HPI Narrative The patient is a 60-year-old female, past medical history of adrenal mass in 2019, follows with Dr. Chavez in [place], GERD, transaminitis, neuropathy, hypertension, history of nephrolithiasis who presented to the clinic complaining of upper respiratory tract symptoms including cough and fever for the past 3 days. Has productive cough, also reported shortness of breath on moderate exertion, which is a new symptom for her started 2 days ago and is worse after bouts of cough. Patient reported having a temperature, but did not have access to thermometer at home. Currently afebrile on vitals in the clinic. CURB score 0. Review of Systems Review of Systems Narrative Review of Systems: General: Positive fever, negative for chills HEENT: Denies congestion or sore throat Heart: Denies chest pain or palpitations Lungs: Endorses shortness of breath on moderate exertion and cough Abdomen: Denies diarrhea, nausea, vomiting, constipation, bright red blood per rectum or melena Genitourinary: Denies frequency, urgency, dysuria, or hematuria Musculoskeletal: Denies joint pain, denies muscular pain Neurology: Denies any numbness, tingling Review of systems otherwise negative except what is mentioned above. Objective/Exam Narrative Physical exam: Constitutional: NAD. Awake, alert, having frequent bouts of cough. HEENT: NCAT. Vision grossly intact. Mucous membranes moist. Respiratory: Bronchial breathing bilaterally. no crackles appreciated. Cardiac: RRR. Abdomen: Soft, non-distended. MSK: No B/L LE edema. Skin: Warm, dry, intact. No obvious lesions. Neuro: Motor and sensation grossly intact. Psychiatric: Appropriate mood and affect. Assessment & Plan Diagnosis / Problem List (1) Infection of chest: Status: Acute Assessment & Plan: Possible pneumonia, given clinical presentation and acute onset of fever and productrive cough, Also reported some respiraotry discomfort and dyspnea on moderate exertion. per CURB criteria score 0, does not meet croteria for iv antibiotics. Reported taking amoxicillin for past 2 days from a previous prescription, and now ran out. Plan: - PO Amoxicillin for 7 more days - Mucinex - CXR - follow up in 2 weeks - If worsening of symptoms including high grade fever and worsening dyspnea please refer to emergency room. Orders: Orders XR chest 2V 03/05/25 EKG (RT) 03/05/25 Additional Assessment plan of care discussed with my attending Rukhsana [id number] Office Procedures [facility] Level of Care Nursing/Assessment Patient Status: Established Patient Nursing Assessment/Reassessment: Medication Reconciliation, Update PMH in EMR and Vital Signs Coordination of Care: Complex Care and Chronic Disease 1-5, Consent,records obtained, informed consent, Education Simp Pt/Fam and Staff clarify orders Established Patient Charge Established Patient Point Assignment: 85 Established Patient Point Charge: EP Level 3 (80-115)
== END 2025-03-05 11:41 | disposition home or self-care (01) ==
LOC: HODAHC 10:47
PROVIDERS: Supervising Provider Internal Medicine; Visit Provider Student in an Organized Health Care Education/Training Program
DX: J22 Unspecified acute lower respiratory infection (principal)
CPT/HCPCS: 99213; G0463

== ENCOUNTER → 2025-03-05 | Outpatient (CLI) | payer MEDICARE, MEDICAID, SELFPAY ==
--- NOTE | 2025-03-05 | XR_ITS ---
Examination: PA lateral chest 2 views Technique: Upright PA lateral chest 2 views Exam date and time: March 05, 2025 1207 hrs. Comparison July 06, 2022 Indications: Coughing chest pain shortness of breath beginning one week ago. Findings: Early pneumonia left base and lingular segment Mild prominence of ventricle Right lung clear Impression: Early pneumonia left base and lingular segment left upper lobe
== END | disposition home or self-care (01) ==
PROVIDERS: PCP Student in an Organized Health Care Education/Training Program; Referring Provider Student in an Organized Health Care Education/Training Program; Visit Provider Student in an Organized Health Care Education/Training Program
DX: J18.9 Pneumonia, unspecified organism (principal)
CPT/HCPCS: 71046

== ENCOUNTER 2025-03-26 16:15 | Emergency (ER) | payer MEDICAID, SELFPAY ==
--- NOTE | 2025-03-26 16:23 | EKG_ITS ---
[facility] Test Date: 2025-03-26 Pat Name: YANN WYNN Department: Room: - Gender: Female Clinical Counselor: : 1965 Requested By: Surinder Rosales Order Number: [id number] Reading MD: Surinder Rosales Measurements Intervals [place] Rate: 92 P: 18 W[place]: 151 QRS: -51 QRSD: 83 T: 0 QT: 330 QTc: 408 Interpretive Statements SINUS RHYTHM PATTERN CONSISTENT WITH PULMONARY DISEASE LEFT ANTERIOR FASCICULAR BLOCK [QRS AXIS <= -45, QR IN I, RS IN II] MINIMAL VOLTAGE CRITERIA FOR LVH, CONSIDER NORMAL VARIANT [MEETS CRITERIA IN ONE OF: R(aVL), S(V1), R(V5), R(V5/V6)+S(V1)] Compared to ECG 06/03/2024 10:22:52 Left anterior fascicular block now present Left-axis deviation no longer present /store/S0/[id number].pdf
--- NOTE | 2025-03-26 16:23 | XR_ITS ---
Examination: PA lateral chest 2 views TECHNIQUE: Upright PA lateral chest 2 views Standing time: March 26, 2025 1739 hours INDICATIONS: Left-sided chest pain radiating to left arm today. FINDINGS: Stable pneumonia versus scarring in the lingular segment and left base Right lung clear No pulmonary edema. Normal heart size IMPRESSION: Stable mild pneumonia versus scarring lingular segment left upper lobe and left base No pulmonary edema
--- NOTE | 2025-03-26 16:26 | PD.EDRME ---
Rapid Medical Screening Exam RME Arrival date/time: 03/26/25 16:15 60-year-old female with no known medical history presents to the emergency room with a chief complaint of 8 out of 10 sternal chest pain that radiates to her left arm x 2 days. Patient also states that she is having some left-sided intermittent facial numbness that also began 2 days ago. I have greeted and performed a focused initial assessment of this patient. A comprehensive ED assessment and evaluation of the patient, analysis of all test results, and completion of the medical decision making process will be conducted by additional ED providers. Chief Complaint: Chest Pain Time Seen by Provider: 03/26/25 16:18 Vital signs reviewed by provider: Yes
[2025-03-26 16:32] VITALS: BP 159/90; PULSE 92; RESP 20; TEMP 37.4; O2SAT 95
[2025-03-26 17:16] LABS: Collection Type, Urine Clean Catch
[2025-03-26 17:17] LABS: Basophils % (Auto) 0 % (0-2.5); Eosinophils # (Auto) 0.1 Thou/mm3 (0.0-0.5); Eosinophils % (Auto) 1 % (0-10); Hematocrit 40.2 % (36.0-46.0); Immature Granulocytes % (Auto) 0 % (0-0); Immature Granulocytes Auto 0.03 Thou/mm3 (0.00-0.00); Lymphocytes # (Auto) 0.8 Thou/mm3 (1.0-4.8); Lymphocytes % (Auto) 8 % (10-50); Mean Corpuscular HGB Conc 34.8 g/dl (31.0-37.0); Mean Corpuscular Hemoglobin 31.6 pg (25.0-35.0); Mean Corpuscular Volume 91 fL (80-100); Monocytes # (Auto) 0.5 Thou/mm3 (0.0-0.8); Monocytes % (Auto) 5 % (0-12); Neutrophils # (Auto) 8.5 Thou/mm3 (1.8-7.7); Neutrophils % (Auto) 86 % (37-80); Nucleated Red Blood Cell % 0 /100 WBC (0); Platelet Count 238 Thou/mm3 (140-440); RDW Standard Deviation 44.7 fL (36.4-46.3); Red Blood Count 4.43 Miln/mm3 (4.00-5.20); White Blood Count 9.9 Thou/mm3 (3.6-11.0)
[2025-03-26 17:25] LABS: Bilirubin,Urine Negative (Negative); Blood,Urine Negative (Negative); Clarity,Urine Clear (Clear/Hazy); Color,Urine Lt-Yellow (Lt Yel-Yel); Glucose, Urine Negative (Negative); Ketones,Urine Negative (Negative); Leukocyte Esterase,Urine Negative (Negative); Nitrite,Urine Negative (Negative); PH,Urine 6.5 (5.0-7.0); Protein,Urine Negative (Neg - Trace); RBC,Urine 2 /hpf (0-3); Specific Gravity,Urine 1.016 (1.001-1.035); Squamous Epithelial Cell,Urine 4 /hpf (0-5); Urobilinogen,Urine Negative mg/dL (0.0-1.0); WBC,Urine 1 /hpf (0-5)
[2025-03-26 17:28] LABS: Amphetamine/Methamp Scrn,U Negative (Negative); Barbiturate Screen,Urine Negative (Negative); Benzodiazepines Screen,Urine Negative (Negative); Benzoylecgonine Screen, Ur Negative (Negative); Fentanyl Screen,Urine Negative (Negative); Opiate Screen,Urine Negative (Negative); THC Screen,Urine Negative (Negative)
[2025-03-26 17:31] LABS: Prothrombin Time 11.1 Seconds (9.0-12.2)
[2025-03-26 17:40] LABS: Alanine Aminotransferase 97 U/L (10-49); Albumin, Serum 4.4 gm/dL (3.5-5.0); Albumin/Globulin Ratio 1.5 (1.2-2.2); Alkaline Phosphatase 108 U/L (46-116); Anion Gap 12 (7-16); Aspartate Amino Transferase 90 U/L (0-34); BUN/Creatinine Ratio 11 Ratio (12-20); Bilirubin,Total 0.5 mg/dL (0.3-1.2); Blood Urea Nitrogen 8 mg/dL (9-23); Calcium 8.9 mg/dL (8.3-10.6); Calcium (Corrected) 8.9 mg/dL (8.5-10.1); Carbon Dioxide 22.3 mMol/L (20.0-31.0); Chloride 105 mMol/L (98-107); Creatinine (Component) 0.7 mg/dL (0.6-1.3); Glucose 115 mg/dL (74-106); Magnesium 1.6 mg/dL (1.6-2.6); Osmolality,Calculated 276 (275-295); Potassium 3.7 mMol/L (3.4-5.1); Sodium 139 mMol/L (136-145); Total Protein 7.4 gm/dL (5.7-8.2); Troponin I < 0.020 ng/mL (0.0-0.045); eGFR > 60 See Note
[2025-03-26 17:42] LABS: B-Type Natriuretic Peptide 40 pg/mL (0-100)
[2025-03-26 18:11] VITALS: BP 167/76; PULSE 88; RESP 18; TEMP 36.8; O2SAT 96
--- NOTE | 2025-03-26 18:43 | EDNOTE_ITS ---
<Statement entered by Magy Mendez MD - 03/28/25 04:23> I, Magy Mnedez MD, have reviewed the history, exam, and assessment of the patient. I have evaluated the patient independently and agree with the plan of care documented by [ ]. All diagnostic studies were reviewed and discussed. I confirm the diagnosis as documented by the Resident. I was present during the Medical Decision Making for this patient. The patient's plan of care was created between myself and the Resident and consistent with our discussion of the patient's case. ED General RME/HPI General Chief complaint: Chest Pain Stated complaint: CHEST PAIN, LEFT ARM PAIN, FACIAL TIGHTNESS, H/A Time Seen by Provider: 03/26/25 16:18 Arrival date/time: 03/26/25 16:15 RME / HPI RME / HPI narrative: 03/26/25 16:15 This 60-year-old female with history of asthma, hypertension, hyperlipidemia presented to the ED with 1 day history of chest tightness with epigastric discomfort, drowsiness, nausea and tiredness. She reported that pain is on 10 and 10 when it comes and last only 15 minutes. Patient was accompanied with her daughter. She also reported to have bloating sensation with frequent burping and heartburn for which she took Protonix at home. She also reported to have loose stools total 4 bowel movements without blood started last night. She follows up transportation agent, Dr. Locke in [place] as outpatient. She ate a tortilla with cheese and a cup of coffee this morning. Per chart reviw, she takes celecoxib for pain. Vitals showed mildly elevated blood pressure 157/86, pulse 90 bpm and saturating well on room air. Labs showed stable white count and hemoglobin. CHEM panel was unremarkable. Kidney functions were stable. Blood glucose 115. Troponin I was negative. UA was negative. U tox was negative. EKG showed sinus rhythm with no acute ST-T changes. We ordered Maalox x 1, viscous lidocaine, Protonix x 1 and Zofran x 1. Patient's symptoms improved after 1 hour and most likely patient was having noncardiac pain related to gastroesophageal reflux disease. She was recommended to take Protonix and Maalox [id number] as needed and try to avoid taking Celebrex and follow-up with her PCP as outpatient. In case her symptoms worse recommended to come back to the ER or call 911. complaint: Chest pain Onset (ago): day(s) (1) Location: chest and abdomen (epigastric) Radiation: neck Severity: moderate Severity scale (1-10): 9 Quality: dull Consistency: intermittent Relieving factors: medication (Protonix) Exacerbating factors: none Associated symptoms: malaise and nausea/vomiting Treatments prior to arrival: other (Protonix) Related Data Home Medications ?Medication ?Instructions ?Recorded ?Confirmed diltiazem HCl 180 mg capsule,24 180 mg PO QAM 06/03/24 03/05/25 hr,extended release polyethylene glycol 3350 17 gram 17 g PO QDAY 08/05/24 03/05/25 oral powder packet Previous Rx's ?Medication ?Instructions ?Recorded cholecalciferol (vitamin D3) 25 25 mcg PO QDAY #30 cap s 10/28/24 mcg (1,000 unit) capsule guaifenesin 600 mg tablet, 600 mg PO Q12H PRN cough #1 4 tabs 03/05/25 extended release 12 hr (Mucinex) acetaminophen 500 mg tablet 500 mg PO Q6H PRN Pain #1 20 tabs 03/26/25 celecoxib 100 mg capsule 100 mg PO BID PRN breakthrou gh 03/26/25 pain, severe #60 caps cetirizine 10 mg tablet 10 mg PO QDAY #30 tabs 03/26 pantoprazole 40 mg tablet,delayed 40 mg PO QDAY #30 ta bs 03/26/25 release (Protonix) Allergies Allergy/AdvReac Type Severity Reaction Status Date / Time iodine Allergy Severe Rash Verified 03/26/25 16:18 Review of Systems Review of Systems Systems Reviewed: All systems reviewed, normal except as documented Past Medical History Past Medical History NEUROLOGIC: Positive Migraine; Negative Neurological Disorders or Seizures CARDIAC: Positive Cardiac Disorders and Hypertension; Negative Congestive Heart Failure, Edema or Cellulitis RESPIRATORY: Positive Asthma, Bronchitis, Pneumonia, Tuberculosis (was treated) and Sleep Apnea; Negative Chronic Obstructive Pulmonary Disease (COPD) GASTROINTESTINAL: Positive Gastrointestinal Disorders (pain right abdomen had ultrasound yesterday), Diverticulitis, Diverticulosis, Gastroesophageal Reflux Disease and Obesity; Negative Hepatitis GENITOURINARY: Negative Genitourinary Disorders or Renal Disease REPRODUCTIVE: Positive Previous Pregnancies; Negative Pelvic Inflammatory Disease MUSCULOSKELETAL: Positive Musculoskeletal Disorders, Arthritis and Degenerative Disk Disease ENDOCRINE: Negative Endocrine Disorders, Diabetes Mellitus Type 1 or Diabetes Mellitus Type 2 HEMATOLOGIC: Positive Blood Disorders and Anemia; Negative Sickle Cell Disease PSYCHO/SOCIAL: Positive Anxiety (no meds) OTHER HISTORY: Positive Hospitalization (diverticulosis) and Chicken Pox; Negative Autoimmune Disease, Shingles, Falls, Blood Transfusions, Blood Transfusion Reaction, Anesthesia Reactions, Chemotherapy, Radiation Therapy, MRSA, Measles, Mumps or Cancer Family History FAMILY HISTORY: Positive Family Cancer; Negative Family Psychiatric Problems, Family Respiratory Disorders, Family Cardiac Disorders, Family Gastrointestinal Problems, Family Surgery or Family Anesthesia Reaction Surgical History SURGICAL: Positive Lumpectomy, Tubal Ligation and Section (2); Negative Pacemaker or Joint Replacement Social History SMOKING STATUS: Never smoker SUBSTANCE USE: does not use ED Exam Narrative Physical exam: GENERAL APPEARANCE: AxOx4, generally well-appearing female in mild distress dut to chest pain HEENT: NC, AT. MMM. EOMI, clear conjunctiva, oropharynx clear. NECK: Supple without lymphadenopathy. No stiffness or restricted ROM. HEART: Sinus tacy with regular rhythm, normal S1/S2, no m/r/g LUNGS: CTAB, moving air well. No crackles or wheezes are heard. ABDOMEN: Soft, Epigastric tenderness , nondistended with good bowel sounds heard. BACK: No CVAT, no obvious deformity. EXTREMITIES: Without cyanosis, clubbing or edema. NEUROLOGICAL: Grossly nonfocal. Alert and oriented, moving all 4 extremities. CN not formally tested but appear grossly intact. Skin: Warm and dry without any rash. Psych: Appropriate mood and affect Course Quality Measures none Orders Category Date Time Status EKG (ED ONLY) *Do not use* NOW Care 03/26/25 16:23 Completed EKG (ED Only) Stat Exams 03/26/25 16:23 Draft XR chest 2V Stat Exams 03/26/25 16:23 Completed B-Type Natriuretic Peptide Stat Lab 03/26/25 16:51 Completed CBC Stat Lab 03/26/25 16:51 Completed Comprehensive Metabolic Panel Stat Lab 03/26/25 16:51 Completed Drug Screen,Urine Stat Lab 03/26/25 17:11 Completed Magnesium Stat Lab 03/26/25 16:51 Completed Partial Thromboplastin Time Stat Lab 03/26/25 16:51 Completed Prothrombin Time with INR Stat Lab 03/26/25 16:51 Completed Troponin I Stat Lab 03/26/25 16:51 Completed Urinalysis Stat Lab 03/26/25 17:11 Completed Lidocaine 2% Viscous [Xylocaine 2% Viscous] Med 03/26/25 18:42 Discontinued 15 ml PO X1 ONE Ondansetron Odt [Zofran Odt] Med 03/26/25 18:42 Discontinued 4 mg PO X1 ONE Pantoprazole [Protonix] Med 03/26/25 18:42 Discontinued 40 mg PO X1 ONE mg Hyd/Al Hyd/Mathieu Susp [Maalox Susp] Med 03/26/25 18:42 Discontinued 30 ml PO X1 ONE Vital Signs Vital signs: Vital Signs Temperature 99.3 F 03/26/25 16:32 Pulse Rate 92 03/26/25 16:32 Respiratory Rate 20 03/26/25 16:32 Blood Pressure 159/90 H 03/26/25 16:32 Pulse Oximetry (%) 95 03/26/25 16:32 Oxygen Delivery Method Room Air 03/26/25 16:32 Discharge Plan Plan Patient Disposition: HOME (Self Care) Prescriptions/Referrals Prescriptions/Med Rec: No Action polyethylene glycol 3350 17 gram powder in packet 17 g PO QDAY guaifenesin [Mucinex] 600 mg tablet extended release 12hr 600 mg PO Q12H PRN (Reason: cough) Qty: 14 0RF cholecalciferol (vitamin D3) 25 mcg (1,000 unit) capsule 25 mcg PO QDAY Qty: 30 3RF pantoprazole [Protonix] 40 mg tablet,delayed release (DR/EC) 40 mg PO QDAY Qty: 30 3RF celecoxib 100 mg capsule 100 mg PO BID MDD 2 PRN (Reason: breakthrough pain, severe) Qty: 60 1RF cetirizine 10 mg tablet 10 mg PO QDAY Qty: 30 3RF acetaminophen 500 mg tablet 500 mg PO Q6H PRN (Reason: Pain ) Qty: 120 1RF diltiazem HCl 180 mg Capsule,Extended Release 24 Hr 180 mg PO QAM Referrals: Luis Carpio MD [Primary Care Provider] - In 1 week Problem List Clinical Impression: GERD (gastroesophageal reflux disease) Patient/Caregiver Discharge Instructions Education Materials: What Is GERD?, GERD Lifestyle Changes, Medicines for Acid Reflux, GERD Dc Additional Instructions: Patient was explained that pain is most likely noncardiac and was recommended to take Protonix and Maalox as needed and follow-up with her PCP as outpatient In case your symptoms revert come back to the ED or call 911 Print Language: Spanish Stand Alone Forms: Sima Award Info., Patient Portal Info Letter MD Attestation Attestation I, Dr. Mendez, have reviewed the history, exam, and assessment of the patient. I have evaluated the patient independently and agree with the plan of care documented by the resident Dr. reyna. All diagnostic studies were reviewed and discussed. I confirm the diagnosis as documented by the resident. I was present during the Medical Decision Making for this patient. The patient?s plan of care was created between myself and the resident and consistent with our discussion of the patient?s case. MDM Medication Administration(s) Medication Administration History Discontinued Medications Al Hydrox/Mg Hydrox/Simethicone (Mg Hyd/Al Hyd/Mathieu (Maalox Reg) Susp 30 Ml Udc) 30 ml PO X1 ONE Stop: 03/26/25 18:43 Last Admin: 03/26/25 18:55 Dose: 30 ml Documented By: Lidocaine HCl (Lidocaine Viscous 2% 15 Ml Udc) 15 ml PO X1 ONE Stop: 03/26/25 18:43 Last Admin: 03/26/25 18:55 Dose: 15 ml Documented By: Ondansetron HCl (Ondansetron Odt 4 Mg Tabrap) 4 mg PO X1 ONE; Protocol Stop: 03/26/25 18:43 Last Admin: 03/26/25 18:54 Dose: 4 mg Documented By: Pantoprazole Sodium (Pantoprazole 40 Mg Tablet) 40 mg PO X1 ONE Stop: 03/26/25 18:43 Last Admin: 03/26/25 18:53 Dose: 40 mg Documented By:
[2025-03-26] MEDS: PANTOPRAZOLE 40 MG TABLET PO (18:53)
[2025-03-26] MEDS: ONDANSETRON ODT 4 MG TABRAP PO (18:54)
[2025-03-26] MEDS: MG HYD/AL HYD/SIME (Maalox Reg) SUSP 30 ML UDC PO (18:55)
[2025-03-26] MEDS: LIDOCAINE VISCOUS 2% 15 ML UDC PO (18:55)
== END 2025-03-26 20:14 | disposition home or self-care (01) ==
PROVIDERS: Nurse Practitioner Family; Emergency Provider Emergency Medicine; PCP Student in an Organized Health Care Education/Training Program
DX: K21.9 Gastro-esophageal reflux disease without esophagitis (principal); J45.909 Unspecified asthma, uncomplicated; I10 Essential (primary) hypertension; E78.5 Hyperlipidemia, unspecified
CPT/HCPCS: 36415; 71046; 80053; 80307; 81001; 83735; 83880; 84484; 85025; 85610; 85730; 93005; 99283; J3490; Q0162; A9270

== ENCOUNTER 2025-03-29 05:24 | Emergency (ER) | payer MEDICAID, SELFPAY ==
[2025-03-29 05:25] VITALS: BMI 42.0
[2025-03-29 05:49] VITALS: BP 192/82; PULSE 72; RESP 17; TEMP 36.8; O2SAT 97
--- NOTE | 2025-03-29 05:58 | PD.EDRME ---
Rapid Medical Screening Exam RME Arrival date/time: 03/29/25 05:24 Chief Complaint: Abdominal Pain Vital signs: Vital Signs Temperature 98.3 F 03/29/25 05:49 Pulse Rate 72 03/29/25 05:49 Respiratory Rate 17 03/29/25 05:49 Blood Pressure 192/82 H 03/29/25 05:49 Pulse Oximetry (%) 97 03/29/25 05:49 Oxygen Delivery Method Room Air 03/29/25 05:49 Vital signs reviewed by provider: Yes RME Narrative: 60-year-old female presents to the ED with complaint of left lower quadrant and epigastric abdominal pain, nausea, vomiting and diarrhea with bright red blood. Symptoms have been present since Saturday. She has felt feverish and chilled however no documented temperature at home. She has a past medical history of GERD, transaminitis, right upper quadrant abdominal pain, diverticulitis with bowel perforation as well as history of elevated LFTs. She states that on her and her sister shared a burrito from [facility] and her sister is ill with similar symptoms as well. Labs and abdomen and pelvis CT ordered and pending. I have greeted and performed a focused initial assessment of this patient. A comprehensive ED assessment and evaluation of the patient, analysis of all test results, and completion of the medical decision making process will be conducted by additional ED providers.
--- NOTE | 2025-03-29 06:45 | XR_ITS ---
Examination: CT abdomen and pelvis without contrast. Coronal 3-D reconstructions. Sagittal 2-D reconstructions. Date and time of exam:March 29, 2025 0717 hours INDICATIONS: Generalized abdominal pain vomiting diarrhea beginning 3 days ago CTDI: vol (mGy): 12 DLP: (mGycm): 703 Technique: Axial images of the abdomen have been obtained, 3 mm slice thickness Intravenous contrast material has not been administered. Low dose protocols were performed. One or more of the following dose reduction techniques were used; automated exposure control, adjustment of the mA and/or KV according to patient size, use of iterative reconstruction technique. Findings: No focal liver or splenic lesions No gallstones Stable fat-containing right adrenal mass, 34 mm, compared with July 05, 2024 Small parapelvic cysts Aorta normal size Small fat-containing umbilical hernia. Normal appendix. The entire colon shows wall thickening and inflammatory change Urinary bladder is contracted with significant wall thickening up to 15 mm The osseous structures are intact with hemangiomatous change L1 IMPRESSION: Moderately severe diffuse nonspecific colitis pattern Recommend urinary bladder sonography follow up to exclude urinary bladder wall thickening, bladder currently is contracted
[2025-03-29 06:52] LABS: Basophils % (Auto) 0 % (0-2.5); Eosinophils # (Auto) 0.2 Thou/mm3 (0.0-0.5); Eosinophils % (Auto) 2 % (0-10); Hematocrit 38.6 % (36.0-46.0); Hemoglobin 13.5 g/dL (12.0-16.0); Immature Granulocytes % (Auto) 0 % (0-0); Immature Granulocytes Auto 0.04 Thou/mm3 (0.00-0.00); Lymphocytes % (Auto) 20 % (10-50); Mean Corpuscular Hemoglobin 31.8 pg (25.0-35.0); Mean Corpuscular Volume 91 fL (80-100); Monocytes % (Auto) 10 % (0-12); Neutrophils # (Auto) 6.6 Thou/mm3 (1.8-7.7); Neutrophils % (Auto) 67 % (37-80); Nucleated Red Blood Cell % 0 /100 WBC (0); Platelet Count 225 Thou/mm3 (140-440); Red Blood Count 4.24 Miln/mm3 (4.00-5.20); White Blood Count 9.9 Thou/mm3 (3.6-11.0)
[2025-03-29 07:09] LABS: Alanine Aminotransferase 114 U/L (10-49); Albumin, Serum 4.2 gm/dL (3.5-5.0); Albumin/Globulin Ratio 1.6 (1.2-2.2); Alkaline Phosphatase 103 U/L (46-116); Amylase 69 U/L (30-118); Anion Gap 10 (7-16); Aspartate Amino Transferase 77 U/L (0-34); BUN/Creatinine Ratio 7 Ratio (12-20); Bilirubin,Total 0.3 mg/dL (0.3-1.2); Blood Urea Nitrogen 5 mg/dL (9-23); Calcium 8.7 mg/dL (8.3-10.6); Calcium (Corrected) 8.7 mg/dL (8.5-10.1); Carbon Dioxide 26.8 mMol/L (20.0-31.0); Chloride 105 mMol/L (98-107); Creatinine (Component) 0.7 mg/dL (0.6-1.3); Estimated Creatinine Clearance 90.6 mL/min (>60); Globulin 2.7 gm/dL (2.3-3.5); Glucose 111 mg/dL (74-106); Lipase 36 U/L (12-53); Osmolality,Calculated 281 (275-295); Potassium 3.6 mMol/L (3.4-5.1); Sodium 142 mMol/L (136-145); Total Protein 6.9 gm/dL (5.7-8.2); eGFR > 60 See Note
[2025-03-29 07:29] LABS: Collection Type, Urine Clean Catch
[2025-03-29 07:36] LABS: Bilirubin,Urine Negative (Negative); Blood,Urine Negative (Negative); Clarity,Urine Clear (Clear/Hazy); Color,Urine Lt-Yellow (Lt Yel-Yel); Glucose, Urine Negative (Negative); Ketones,Urine Negative (Negative); Leukocyte Esterase,Urine Negative (Negative); Nitrite,Urine Negative (Negative); PH,Urine 5.5 (5.0-7.0); Protein,Urine Negative (Neg - Trace); RBC,Urine 2 /hpf (0-3); Specific Gravity,Urine 1.021 (1.001-1.035); Squamous Epithelial Cell,Urine 3 /hpf (0-5); Urobilinogen,Urine Negative mg/dL (0.0-1.0); WBC,Urine 2 /hpf (0-5)
[2025-03-29 08:43] VITALS: BP 165/101; PULSE 73; RESP 16; TEMP 37; O2SAT 96
--- NOTE | 2025-03-29 08:49 | EDNOTE_ITS ---
ED Abdominal Pain RME/HPI General Chief Complaint: Abdominal Pain Stated complaint: ABD PAIN WITH DIARRHEA AND VOMITING Time seen by provider: 03/29/25 11:14 Arrival date/time: 03/29/25 05:24 Limitations: no limitations RME / HPI RME / HPI narrative: 60-year-old female presents to the ED with complaint of left lower quadrant and epigastric abdominal pain, nausea, vomiting and diarrhea with bright red blood. Symptoms have been present since Saturday. She has felt feverish and chilled however no documented temperature at home. She has a past medical history of GERD, transaminitis, right upper quadrant abdominal pain, diverticulitis with bowel perforation as well as history of elevated LFTs. She states that on her and her sister shared a burrito from [facility] and her sister is ill with similar symptoms as well. Labs and abdomen and pelvis CT ordered and pending. I have greeted and performed a focused initial assessment of this patient. A comprehensive ED assessment and evaluation of the patient, analysis of all test results, and completion of the medical decision making process will be conducted by additional ED providers. DR. WHEELER MAIN ED EVALUATION: 60 year old female with past medical history significant for GERD, asthma, hypertension, and hyperlipidemia presents to the Emergency Department accompanied by her with complaint of diffuse abdominal pain. Associated symptoms include nausea and vomiting. Related Data Home Medications ?Medication ?Instructions ?Recorded ?Confirmed diltiazem HCl 180 mg capsule,24 180 mg PO QAM 06/03/24 03/05/25 hr,extended release polyethylene glycol 3350 17 gram 17 g PO QDAY 08/05/24 03/05/25 oral powder packet Previous Rx's ?Medication ?Instructions ?Recorded cholecalciferol (vitamin D3) 25 25 mcg PO QDAY #30 cap s 10/28/24 mcg (1,000 unit) capsule guaifenesin 600 mg tablet, 600 mg PO Q12H PRN cough #1 4 tabs 03/05/25 extended release 12 hr (Mucinex) acetaminophen 500 mg tablet 500 mg PO Q6H PRN Pain #1 20 tabs 03/26/25 celecoxib 100 mg capsule 100 mg PO BID PRN breakthrou gh 03/26/25 pain, severe #60 caps cetirizine 10 mg tablet 10 mg PO QDAY #30 tabs 03/26 pantoprazole 40 mg tablet,delayed 40 mg PO QDAY #30 ta bs 03/26/25 release (Protonix) levofloxacin 500 mg tablet 500 mg PO Q24H 7 days #7 ta bs 03/29/25 metronidazole 500 mg tablet 500 mg PO BID 7 days #14 t abs 03/29/25 Allergies Allergy/AdvReac Type Severity Reaction Status Date / Time iodine Allergy Severe Rash Verified 03/29/25 05:25 Review of Systems Review of Systems Systems Reviewed: All systems reviewed, normal except as documented Narrative Review of Systems: GEN: No fever, no chills, no weight loss EYES: No discharge, no visual changes, no pain HEENT: No ear pain, no congestion, no sore throat PULM: No shortness of breath, no cough, no congestion CV: No chest pain, no dyspnea on exertion, no palpitations GI: + nausea, + vomiting, no diarrhea, + diffuse abdominal pain, no constipation : No frequency, no urgency and no dysuria MUSC/SKEL: No joint pain, no back pain SKIN: No rash PSYCH: No hallucinations, no depression HEME/LYMPH: No easy bleeding or bruising tendencies NEURO: No weakness, no headache Past Medical History Past Medical History NEUROLOGIC: Positive Migraine CARDIAC: Positive Cardiac Disorders, Hypercholesterolemia and Hypertension RESPIRATORY: Positive Asthma, Bronchitis, Pneumonia, Tuberculosis and Sleep Apnea GASTROINTESTINAL: Positive Gastrointestinal Disorders, Diverticulitis, Diverticulosis, Gastroesophageal Reflux Disease and Obesity REPRODUCTIVE: Positive Previous Pregnancies MUSCULOSKELETAL: Positive Musculoskeletal Disorders, Arthritis and Degenerative Disk Disease HEMATOLOGIC: Positive Blood Disorders and Anemia PSYCHO/SOCIAL: Positive Anxiety OTHER HISTORY: Positive Hospitalization and Chicken Pox Family History FAMILY HISTORY: Positive Family Cancer (PT'S DAD LIVER & PANCREATIC CANCER) Surgical History SURGICAL: Positive Lumpectomy (R BREAST), Tubal Ligation and Section Social History SMOKING STATUS: Never smoker SUBSTANCE USE: does not use ALCOHOL: Never ED Exam General Limitations: Present no limitations General appearance: Present alert and in no apparent distress Head Head exam: Present atraumatic, normocephalic and normal inspection Eye Eye exam: Present normal appearance, PERRL and EOMI ENT ENT exam: Present normal exam, normal oropharynx and mucous membranes moist Neck Neck exam: Present normal inspection, full ROM and trachea midline Chest Chest inspection: Present normal inspection and symmetric chest wall rise Respiratory Respiratory exam: Present normal lung sounds bilaterally Cardiovascular Cardiovascular exam: Present regular rate, normal rhythm and normal heart sounds Abdominal Exam Abdominal exam: Present tenderness (diffuse and generalized tenderness) and normal bowel sounds Extremities Exam Extremities exam: Present normal inspection and full ROM Back Exam Back exam: Present normal inspection and full ROM Neurological Exam Neurological exam: Present alert, oriented X3 and CN II-XII intact Psychiatric Psychiatric exam: Present normal affect and normal mood Skin Skin exam: Present warm, dry, intact and normal color Course Quality Measures none Orders Category Date Time Status IV [Insert IV] NOW Care 03/29/25 06:01 Active NPO STAT Care 03/29/25 06:[address] abdomen pelvis wo con Stat Exams 03/29/25 06:45 Completed Amylase Stat Lab 03/29/25 06:31 Completed CBC Stat Lab 03/29/25 06:31 Completed Comprehensive Metabolic Panel Stat Lab 03/29/25 06:31 Completed Lipase Stat Lab 03/29/25 06:31 Completed Urinalysis Stat Lab 03/29/25 06:57 Completed Urine Culture Stat Lab 03/29/25 06:57 Received Acetaminophen Ivpb [Ofirmev Inj] Med 03/29/25 06:07 Discontinued 1,000 mg in 100 ml IV NOW Levofloxacin/D5w 500 mg Ivpb [Levaquin Ivpb] Med 03/29/25 08:54 Discontinued 500 mg in 100 ml IV X1 Morphine Inj Med 03/29/25 08:51 Discontinued 4 mg IVP X1 ONE Ondansetron Inj [Zofran Inj] Med 03/29/25 08:51 Discontinued 4 mg IV X1 ONE Ondansetron Odt [Zofran Odt] Med 03/29/25 06:26 Discontinued 4 mg PO X1 ONE Ringers Lactated 1000 ml [Lactated Ringers] 1,000 ml Med 03/29/25 08:54 Discontinued IV 999 mls/hr metroNIDAZOLE/NS 500 MG IVPB [Flagyl 500 mg IV] Med 03/29/25 08:54 Discontinued 500 mg in 100 ml IV X1 Vital Signs Vital signs: Vital Signs Temperature 98.3 F 03/29/25 05:49 Pulse Rate 72 03/29/25 05:49 Respiratory Rate 17 03/29/25 05:49 Blood Pressure 192/82 H 03/29/25 05:49 Pulse Oximetry (%) 97 03/29/25 05:49 Oxygen Delivery Method Room Air 03/29/25 05:49 Abdominal Pain MDM MDM Narrative MDM Narrative:: I, Bethany Carson, am scribing for and in the presence of Dr. Wheeler. Patient workup showed no evidence of sepsis Patient had blood in the stool with abdominal pain and finding suggestive of col itis. This is more of bacterial gastroenteritis Patient was started on Levaquin Flagyl and sent home on doing Flagyl for 5 more days Patient was discharged with condition No evidence of RITA No evidence of sepsis Patient data External records reviewed:: [facility] previous records (Reviewed last ED visit dated 03/26/25, discharged with the following: GERD) Clinical information provided by:: patient and spouse Social determinants that could affect healthcare access:: none Patient has the following chronic illnesses:: GERD, asthma, hypertension, and hyperlipidemia How is presenting disease/condition affected by chronic disease/condition?: exacerbated by Evaluation data The following diagnostics were reviewed and interpreted by me:: lab results and radiology exam(s) Lab and/or radiology exams considered but not ordered:: none Interpretation Summary: Procedure(s): CT abdomen pelvis wo con Accession Number(s): [id number] cc: Keke (FILIBERTO),Jericho DE LOS SANTOS; Braden Muñoz MD; NO PRIMARY/FAMILY,PHYSICIAN~ Examination: CT abdomen and pelvis without contrast. Coronal 3-D reconstructions. Sagittal 2-D reconstructions. Date and time of exam:March 29, 2025 0717 hours INDICATIONS: Generalized abdominal pain vomiting diarrhea beginning 3 days ago CTDI: vol (mGy): 12 DLP: (mGycm): 703 Technique: Axial images of the abdomen have been obtained, 3 mm slice thickness Intravenous contrast material has not been administered. Low dose protocols were performed. One or more of the following dose reduction techniques were used; automated exposure control, adjustment of the mA and/or KV according to patient size, use of iterative reconstruction technique. Findings: No focal liver or splenic lesions No gallstones Stable fat-containing right adrenal mass, 34 mm, compared with July 05, 2024 Small parapelvic cysts Aorta normal size Small fat-containing umbilical hernia. Normal appendix. The entire colon shows wall thickening and inflammatory change Urinary bladder is contracted with significant wall thickening up to 15 mm The osseous structures are intact with hemangiomatous change L1 IMPRESSION: Moderately severe diffuse nonspecific colitis pattern Recommend urinary bladder sonography follow up to exclude urinary bladder wall thickening, bladder currently is contracted Dictated By: Braden Muñoz MD Medications / Prescriptions Medications or Prescriptions considered but not ordered:: none Medication administrations:: Medication Administration History Discontinued Medications Acetaminophen (Ofirmev Inj) 1,000 mg in 100 mls @ 250 mls/hr IV NOW ONE Stop: 03/29/25 06:30 Last Admin: 03/29/25 09:12 Dose: Not Given Documented By: GM Non-Admin Reason: Patient Refused Levofloxacin/Dextrose (Levaquin Ivpb) 500 mg in 100 mls @ 100 mls/hr IV X1 ONE Stop: 03/29/25 09:53 Last Infusion: 03/29/25 10:20 Dose: Infused Documented By: Admin: 03/29/25 09:10 Dose: 100 mls/hr Documented By: STEFANIA Metronidazole (Flagyl 500 Mg Iv) 500 mg in 100 mls @ 100 mls/hr IV X1 ONE Stop: 03/29/25 09:53 Last Infusion: 03/29/25 11:41 Dose: Infused Documented By: Admin: 03/29/25 10:33 Dose: 100 mls/hr Documented By: LAKSHMI Lactated Ringer's (Lactated Ringers) 1,000 mls @ 999 mls/hr IV .Q1H1M ONE Stop: 03/29/25 09:54 Last Infusion: 03/29/25 10:30 Dose: Infused Documented By: Admin: 03/29/25 09:12 Dose: 999 mls/hr Documented By: STEFANIA Morphine Sulfate (Morphine Sulf Inj 10 Mg/Ml Vial) 4 mg IVP X1 ONE Stop: 03/29/25 08:52 Last Admin: 03/29/25 09:07 Dose: 4 mg Documented By: STEFANIA Ondansetron HCl (Ondansetron Odt 4 Mg Tabrap) 4 mg PO X1 ONE; Protocol Stop: 03/29/25 06:27 Last Admin: 03/29/25 08:52 Dose: Not Given Documented By: STEFANIA Non-Admin Reason: Nausea Ondansetron HCl (Ondansetron Inj 2 Mg/Ml Inj 2 Ml) 4 mg IV X1 ONE; Protocol Stop: 03/29/25 08:52 Last Admin: 03/29/25 09:07 Dose: 4 mg Documented By: STEFANIA see above Consultations Consultation(s) initiated? (list below): No Diagnosis Differential diagnosis abdominal pain: abdominal pain, calculus of kidney and other (colitis) Most likely diagnosis given after review of the tests above:: Gastroenteritis Traveler's diarrhea Admission Indicated Admission indicated?: not indicated Admission Request Was there a request for admission?: No Disposition Plan Disposition Plan: Discharge Discharge Attestation Discharge Attestation: The patient and all family members were given an opportunity to ask questions and understood the discharge instructions. Discharge instructions specifically effects, indications for sooner follow up or return to the emergency department, and the expected course of current diagnosis. Patient condition: Stable Discharge Plan Plan Patient Disposition: HOME (Self Care) Patient condition on transfer: Stable Prescriptions/Referrals Prescriptions/Med Rec: New levofloxacin 500 mg tablet 500 mg PO Q24H 7 Days Qty: 7 0RF metronidazole 500 mg tablet 500 mg PO BID 7 Days Qty: 14 0RF No Action polyethylene glycol 3350 17 gram powder in packet 17 g PO QDAY guaifenesin [Mucinex] 600 mg tablet extended release 12hr 600 mg PO Q12H PRN (Reason: cough) Qty: 14 0RF cholecalciferol (vitamin D3) 25 mcg (1,000 unit) capsule 25 mcg PO QDAY Qty: 30 3RF pantoprazole [Protonix] 40 mg tablet,delayed release (DR/EC) 40 mg PO QDAY Qty: 30 3RF celecoxib 100 mg capsule 100 mg PO BID MDD 2 PRN (Reason: breakthrough pain, severe) Qty: 60 1RF cetirizine 10 mg tablet 10 mg PO QDAY Qty: 30 3RF acetaminophen 500 mg tablet 500 mg PO Q6H PRN (Reason: Pain ) Qty: 120 1RF diltiazem HCl 180 mg Capsule,Extended Release 24 Hr 180 mg PO QAM Referrals: No Primary/Family,Physician [Primary Care Provider] - In 1 week Problem List Clinical Impression: Gastroenteritis, Traveler's diarrhea Patient/Caregiver Discharge Instructions Discharge Activity: activity as tolerated Education Materials: Anatomy of the Digestive System, ED Gastroenteritis, Noninfectious Print Language: Bulgarian Stand Alone Forms: Sima Award Info., Patient Portal Info Letter
[2025-03-29] MEDS: MORPHINE SULF INJ 10 MG/ML VIAL 4 MG IVP (09:07)
[2025-03-29] MEDS: ONDANSETRON INJ 2 MG/ML INJ 2 ML 4 MG IV (09:07)
[2025-03-29] MEDS: LEVOFLOXACIN/D5W 500 MG IVPB 500 MG/100 ML BAG 100 MG IV (09:10)
[2025-03-29] MEDS: RINGERS LACTATED 1000 ML 1,000 ML 999 ML IV (09:12)
[2025-03-29] MEDS: metroNIDAZOLE/NS 500 MG IVPB 500 MG/100 ML BAG 100 MG IV (10:33)
[2025-03-29 11:46] VITALS: BP 142/77; PULSE 67; RESP 17; TEMP 36.9; O2SAT 95
== END 2025-03-29 11:55 | disposition home or self-care (01) ==
PROVIDERS: Physician Assistant; Emergency Provider Emergency Medicine
DX: K52.9 Noninfective gastroenteritis and colitis, unspecified (principal)
CPT/HCPCS: 36415; 74176; 80053; 81001; 82150; 82270; 83690; 85025; 87086; 96365; 96367; 96375; 99284; J1956; J2270; J2405; J3490; J7120; J1836

== ENCOUNTER 2025-03-31 13:18 | Outpatient (AMB) | payer MEDICAID, SELFPAY ==
[2025-03-31 13:36] VITALS: BP 129/80; PULSE 68; RESP 18; TEMP 36.4; O2SAT 95; BMI 42.6
--- NOTE | 2025-03-31 13:36 | PD.RESCLINIC ---
Vital Signs 03/31/25 13:36 Height 1.52 m Height Method Stated Weight 98.43 kg Weight Measurement Method Standing Scale BMI 42.6 BP 129/80 Blood Pressure Source Automatic Cuff Blood Pressure Location Right Upper Arm Position Sitting Respiration 18 Pulse 68 Pulse Source Monitor Temp 97.5 F Temp Source Temporal Artery Scan Pulse Oximetry (%) 95 Oxygen Delivery Method Room Air Allergies/Meds Allergies & Medications Allergies iodine Allergy (Severe, Verified 03/31/25 13:37) Rash Medication Reconciliation diltiazem HCl 180 mg capsule,24 hr,extended release 180 mg PO QAM 06/03/24 [History Confirmed 03/31/25] polyethylene glycol 3350 17 gram oral powder packet 17 g PO QDAY 08/05/24 [History Confirmed 03/31/25] cholecalciferol (vitamin D3) 25 mcg (1,000 unit) capsule 25 mcg PO QDAY #30 caps 10/28/24 [Rx Confirmed 03/31/25] guaifenesin 600 mg tablet, extended release 12 hr (Mucinex) 600 mg PO Q12H PRN cough #14 tabs 03/05/25 [Rx Confirmed 03/31/25] acetaminophen 500 mg tablet 500 mg PO Q6H PRN Pain #120 tabs 03/26/25 [Rx Confirmed 03/31/25] celecoxib 100 mg capsule 100 mg PO BID PRN breakthrough pain, severe #60 caps 03/26/25 [Rx Confirmed 03/31/25] cetirizine 10 mg tablet 10 mg PO QDAY #30 tabs 03/26/25 [Rx Confirmed 03/31/25] pantoprazole 40 mg tablet,delayed release (Protonix) 40 mg PO QDAY #30 tabs 03/26/25 [Rx Confirmed 03/31/25] levofloxacin 500 mg tablet 500 mg PO Q24H 7 days #7 tabs 03/29/25 [Rx Confirmed 03/31/25] metronidazole 500 mg tablet 500 mg PO BID 7 days #14 tabs 03/29/25 [Rx Confirmed 03/31/25] loperamide 2 mg capsule 2 mg PO QID PRN loose stool #24 caps 03/31/25 [Rx] ondansetron 4 mg disintegrating tablet 4 mg PO Q8H PRN nausea and vomiting #12 tabs 03/31/25 [Rx] MA Intake Visit Data Collection New Patient or Established: Established Patient (seen at [facility] within 3 years) Seen by Clinical Staff ONLY (RN/MA): No Pain Present Currently: No Pain scale:: 0 Pain Scale Used: Montes-Diallo/[employer]ical [employer] Required: No PCP or OBGYN visit in last 3 months: No Hx Now: No Do You Feel Safe at Home: Yes Authorities Contacted: N/A Smoking Status Smoking Status: Never smoker Immunization / Flu Flu Vaccine in the Last 12 Months: No Flu Vaccine Exclusion Criteria: No Exclusion Criteria Past Medical History Past Medical History NEUROLOGIC: Positive Migraine; Negative Neurological Disorders or Seizures CARDIAC: Positive Cardiac Disorders, Hypercholesterolemia and Hypertension; Negative Congestive Heart Failure, Edema or Cellulitis RESPIRATORY: Positive Asthma, Bronchitis, Pneumonia, Tuberculosis and Sleep Apnea; Negative Chronic Obstructive Pulmonary Disease (COPD) GASTROINTESTINAL: Positive Gastrointestinal Disorders, Diverticulitis, Diverticulosis, Gastroesophageal Reflux Disease and Obesity; Negative Hepatitis GENITOURINARY: Negative Genitourinary Disorders or Renal Disease REPRODUCTIVE: Positive Previous Pregnancies; Negative Pelvic Inflammatory Disease MUSCULOSKELETAL: Positive Arthritis and Degenerative Disk Disease ENDOCRINE: Negative Endocrine Disorders, Diabetes Mellitus Type 1 or Diabetes Mellitus Type 2 HEMATOLOGIC: Positive Blood Disorders and Anemia; Negative Sickle Cell Disease PSYCHO/SOCIAL: Positive Anxiety OTHER HISTORY: Positive Hospitalization and Chicken Pox; Negative Autoimmune Disease, Shingles, Falls, Blood Transfusions, Blood Transfusion Reaction, Anesthesia Reactions, Chemotherapy, Radiation Therapy, MRSA, Measles, Mumps or Cancer Family History FAMILY HISTORY: Positive Family Cancer (PT'S DAD LIVER & PANCREATIC CANCER); Negative Family Psychiatric Problems, Family Respiratory Disorders, Family Cardiac Disorders, Family Gastrointestinal Problems, Family Surgery or Family Anesthesia Reaction Surgical History SURGICAL: Positive Lumpectomy (R BREAST), Tubal Ligation and Section; Negative Pacemaker or Joint Replacement Social History SMOKING STATUS: Smoking status: Never smoker ALCOHOL: Alcohol Intake: Never HOUSING: Housing: House Patient Portal Questionaires PHQ-9 PHQ-2 Over the last 2 weeks, how often have you been bothered by any of the following problems? 1. Little interest or pleasure in doing things: not at all PHQ-9 8. Moving or speaking so slowly that other people could have noticed? - Or the opposite - being so fidgety or restless that you have been moving around a lot more than usual: not at all Source: Developed by Drs. Momo Russell, Latoya Flores, Pradeep Alvarado and colleagues, with an educational miley from [employer]. Social History Living Situation History Housing: House Tobacco History Smoking Status: Never smoker Alcohol History Alcohol Intake: Never Domestic Abuse History Do You Feel Safe at Home: Yes Review of Systems Report any current symptoms Only answer those that you have currently: Past Medical History Past Medical History Have you ever been diagnosed with any of the following: Neurological Problems Seizures: No Migraine: Yes Cardiology Problems Hypercholesterolemia: Yes Congestive Heart Failure: No Edema: No Cellulitis: No Hypertension: Yes Respiratory Problems Chronic Obstructive Pulmonary Disease (COPD): No Asthma: Yes Bronchitis: Yes Pneumonia: Yes Tuberculosis: Yes Sleep Apnea: Yes Stomache/Intestinal Problems Hepatitis: No Diverticulitis: Yes Diverticulosis: Yes Gastroesophageal Reflux Disease: Yes Obesity: Yes Genital/Urinary Problems Renal Disease: No Reproductive Problems Pelvic Inflammatory Disease: No Previous Pregnancies: Yes Musculoskeletal Problems Arthritis: Yes Degenerative Disk Disease: Yes Endocrine Problems Diabetes Mellitus Type 1: No Diabetes Mellitus Type 2: No Blood Problems Anemia: Yes Sickle Cell Disease: No Psychologic Problems Anxiety: Yes Other Problems Hospitalization: Yes Autoimmune Disease: No Shingles: No Falls: No Blood Transfusions: No Blood Transfusion Reaction: No Anesthesia Reactions: No Chemotherapy: No Radiation Therapy: No MRSA: No Chicken Pox: Yes Measles: No Mumps: No Cancer: No Surgical History Pacemaker: No History of Present Illness HPI Narrative Edie Rizo is a 60-year-old female with a past medical history of atrial 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 Chavez), GERD, transaminitis, diverticulosis who presents to clinic after having experienced diarrhea since 03/25. States that diarrhea started after eating food from [employer] and that both she and her sister experienced similar symptoms. Has been having around 4 episodes per day, watery, and endorses having episodes of bloody diarrhea for couple of days but has since resolved longer bloody. She was evaluated in the ED and labs were unremarkable and was sent home after being given Maalox, viscous lidocaine, Protonix, and Zofran as her symptoms improved. She represented to the ED on 03/29 for abdominal pain, nausea, vomiting, and bloody diarrhea as noted previously and was discharged with levofloxacin and Flagyl for 5 days. She now presented to clinic and continues to have 4 episodes of watery diarrhea but is now nonbloody. Of note, also endorses epigastric abdominal pain for which she has been prescribed protonix and states that it alleviates her symptoms but has had epigastric discomfort for years now. Review of Systems Review of Systems Systems Reviewed: All systems reviewed, normal except as documented Objective/Exam Narrative Physical exam: General: AOx3, no acute distress, able to speak full sentences HEENT: NC/AT, mucous membranes moist, bilateral sclera anicteric Cardiovascular: regular rate and rhythm, S1/S2 present, no murmurs appreciated Pulmonary: clear to auscultation bilaterally, no rales/rhonchi/wheezes Abdominal: obese, diffuse tenderness but mostly noted in epigastrium, soft, non-distended Musculoskeletal: normal ROM, no peripheral edema Skin: warm and dry, intact, no rashes Neuro: CN II-XII intact, no focal deficits Assessment & Plan Diagnosis / Problem List (1) Acute infectious diarrhea: Status: Acute Assessment & Plan: Diarrhea since 03/25 with some episodes of bloody diarrhea but has since resolved after eating food from [employer]. States that her sister had similar symptoms but have resolved now. Plan: - Follow-up C. diff, O&P, stool culture results - Continue levofloxacin and flagyl as prescribed from the ED - Loperamide prescribed for loose bowel movements - Zofran prescirbed for endorsed nausea associated with taking flagyl - Follow-up in two weeks (2) GERD (gastroesophageal reflux disease): Status: Chronic Qualifiers: Esophagitis presence: esophagitis presence not specified Qualified Code(s): K21.9 - Gastro-esophageal reflux disease without esophagitis Assessment & Plan: Has endorsed epigastric pain that has been present for years now that improves with PPI. Will order H. pylori stool antigen testing as stool tests are already being done for acute diarrhea. Plan: - Follow-up H. pylori stool antigen testing - Follow-up in two weeks Office Procedures [facility] Level of Care Nursing/Assessment Patient Status: Established Patient Nursing Assessment/Reassessment: Medication Reconciliation, Update PMH in EMR and Vital Signs Coordination of Care: Complex Care and Chronic Disease 1-5, Consent,records obtained, informed consent, Education Simp Pt/Fam and Staff clarify orders Established Patient Charge Established Patient Point Assignment: 85 Established Patient Point Charge: Level 3 (80-115)
== END 2025-03-31 14:35 | disposition home or self-care (01) ==
LOC: HODAHC 13:18
PROVIDERS: Supervising Provider Internal Medicine
DX: A09 Infectious gastroenteritis and colitis, unspecified (principal); K21.9 Gastro-esophageal reflux disease without esophagitis; I10 Essential (primary) hypertension
CPT/HCPCS: 99213; G0463

== ENCOUNTER 2025-04-21 13:16 | Outpatient (AMB) | payer MEDICAID, SELFPAY ==
[2025-04-21 14:01] VITALS: BP 120/77; PULSE 78; RESP 18; TEMP 36.8; O2SAT 97
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
== END 2025-04-21 14:45 | disposition home or self-care (01) ==
LOC: HODAHC 13:16
PROVIDERS: Supervising Provider Internal Medicine
DX: M25.512 Pain in left shoulder (principal); M51.379 Other intervertebral disc degeneration, lumbosacral region without mention of lumbar back pain or lower extremity pain; I10 Essential (primary) hypertension; R92.8 Other abnormal and inconclusive findings on diagnostic imaging of breast
CPT/HCPCS: 99213; G0463

== ENCOUNTER → 2025-04-21 | Outpatient (CLI) | payer MEDICARE, MEDICAID, SELFPAY ==
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
== END | disposition home or self-care (01) ==
DX: M75.32 Calcific tendinitis of left shoulder (principal); M25.812 Other specified joint disorders, left shoulder; S49.92XS Unspecified injury of left shoulder and upper arm, sequela; V89.2XXS Person injured in unspecified motor-vehicle accident, traffic, sequela
CPT/HCPCS: 73030

== ENCOUNTER → 2025-05-04 | Outpatient (CLI) | payer MEDICARE, MEDICAID, SELFPAY ==
--- NOTE | 2025-05-04 14:15 | XR_ITS ---
Examination: Screening digital mammography, bilateral Computer aided detection 3-D breast Tomosynthesis, bilateral Date and time of exam: May 04, 2025 1408 hours Compared to mammograms dating to April 14, 2021 Indication: Screening Technique: Nonmagnified MLO, CC views of the breasts to been obtained, reconstructed from 3-D Tomosynthesis images. R2 computer aided detection program utilized for evaluation of suspicious masses and/or abnormal calcifications. 3-D Tomosynthesis images obtained. Findings: Scattered areas of fibroglandular density Stable scar formation outer right breast consistent with patient's history right breast biopsy Benign calcifications No interval suspicious masses Impression: BI-RADS category II: Benign Findings. Recommend 1 year follow-up mammogram.
== END | disposition home or self-care (01) ==
DX: Z12.31 Encounter for screening mammogram for malignant neoplasm of breast (principal); R92.323 Mammographic fibroglandular density, bilateral breasts; R92.1 Mammographic calcification found on diagnostic imaging of breast
CPT/HCPCS: 77063; 77067

== ENCOUNTER 2025-05-05 13:10 | Outpatient (AMB) | payer MEDICARE, MEDICAID, SELFPAY ==
[2025-05-05 13:26] VITALS: BP 137/78; PULSE 76; RESP 18; TEMP 36.8; O2SAT 92; BMI 43.0
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
== END 2025-05-05 14:18 | disposition home or self-care (01) ==
LOC: HODAHC 13:10
PROVIDERS: Supervising Provider Internal Medicine
DX: M25.512 Pain in left shoulder (principal); I10 Essential (primary) hypertension; R92.8 Other abnormal and inconclusive findings on diagnostic imaging of breast
CPT/HCPCS: 20610; 99213; J3301; J3490; G0463

== ENCOUNTER 2025-07-13 09:15 | Outpatient (AMB) | payer MEDICARE, MEDICAID, SELFPAY ==
[2025-07-13 09:35] VITALS: BP 164/81; PULSE 74; RESP 19; TEMP 36.4; O2SAT 91
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
== END 2025-07-13 10:36 | disposition home or self-care (01) ==
LOC: HODAHC 09:15
PROVIDERS: Supervising Provider Internal Medicine; Visit Provider Student in an Organized Health Care Education/Training Program
DX: I10 Essential (primary) hypertension (principal); M25.561 Pain in right knee; G89.29 Other chronic pain; N95.1 Menopausal and female climacteric states; R23.2 Flushing; G43.109 Migraine with aura, not intractable, without status migrainosus; R92.321 Mammographic fibroglandular density, right breast; M25.512 Pain in left shoulder
CPT/HCPCS: 99213; G0463

== ENCOUNTER 2025-08-11 14:01 | Outpatient (AMB) | payer MEDICARE, MEDICAID, SELFPAY ==
[2025-08-11 14:11] VITALS: BP 135/77; PULSE 84; RESP 18; TEMP 36.8; O2SAT 90
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
== END 2025-08-11 15:17 | disposition home or self-care (01) ==
LOC: HODAHC 14:01
PROVIDERS: Supervising Provider Internal Medicine; Visit Provider Student in an Organized Health Care Education/Training Program
DX: G43.109 Migraine with aura, not intractable, without status migrainosus (principal); N95.1 Menopausal and female climacteric states; R23.2 Flushing; I10 Essential (primary) hypertension; R92.321 Mammographic fibroglandular density, right breast; I48.0 Paroxysmal atrial fibrillation; R79.89 Other specified abnormal findings of blood chemistry
CPT/HCPCS: 99213; G0463

== ENCOUNTER 2025-09-10 09:54 | Outpatient (AMB) | payer MEDICARE, MEDICAID, SELFPAY ==
--- NOTE | 2025-09-10 10:26 | AMB.GYNCLNOT ---
Vital Signs 09/10/25 10:36 Height 1.52 m Height Method Stated BP 138/80 H Blood Pressure Source Automatic Cuff Blood Pressure Location Left Upper Arm Position Sitting Respiration 14 Pulse 67 Pulse Source Monitor Temp 97.5 F Temp Source Oral Pulse Oximetry (%) 96 Oxygen Delivery Method Room Air Allergies/Home Meds Allergies & Medications Allergies iodine Allergy (Severe, Verified 09/10/25 10:37) Rash Medication Reconciliation diltiazem HCl 180 mg capsule,24 hr,extended release 180 mg PO QAM 06/03/24 [History Confirmed 09/10/25] polyethylene glycol 3350 17 gram oral powder packet 17 g PO QDAY 08/05/24 [History Confirmed 09/10/25] guaifenesin 600 mg tablet, extended release 12 hr (Mucinex) 600 mg PO Q12H PRN cough #14 tabs 03/05/25 [Rx Confirmed 09/10/25] acetaminophen 500 mg tablet 500 mg PO Q6H PRN Pain #120 tabs 03/26/25 [Rx Confirmed 09/10/25] celecoxib 100 mg capsule 100 mg PO BID PRN breakthrough pain, severe #60 caps 03/26/25 [Rx Confirmed 09/10/25] cetirizine 10 mg tablet 10 mg PO QDAY #30 tabs 03/26/25 [Rx Confirmed 09/10/25] loperamide 2 mg capsule 2 mg PO QID PRN loose stool #24 caps 03/31/25 [Rx Confirmed 09/10/25] ondansetron 4 mg disintegrating tablet 4 mg PO Q8H PRN nausea and vomiting #12 tabs 03/31/25 [Rx Confirmed 09/10/25] cholecalciferol (vitamin D3) 25 mcg (1,000 unit) capsule 25 mcg PO QDAY #30 caps 04/23/25 [Rx Confirmed 09/10/25] pantoprazole 40 mg tablet,delayed release (Protonix) 40 mg PO QDAY #30 tabs 05/14/25 [Rx Confirmed 09/10/25] propranolol 20 mg tablet 20 mg PO TID #90 tabs 08/11/25 [Rx Confirmed 09/10/25] rimegepant 75 mg disintegrating tablet (Nurtec ODT) 75 mg PO Q OTHER DAY PRN migraine headache #20 tabs 08/11/25 [Rx Confirmed 09/10/25] conj estrogen-medroxyprogesterone 0.3 mg-1.5 mg tablet (Prempro) 1 tab PO QDAY 84 days #84 tabs 09/10/25 [Rx] Intake Visit Data Collection New Patient or Established: Established Patient (seen at [facility] within 3 years) Reason for Visit:: MENOPAUSE Seen by Clinical Staff ONLY (RN/MA): No Loss Prevention Operations Manager Required: No Do You Feel Safe at Home: Yes Authorities Contacted: N/A PCP or OBGYN visit in last 3 months: Yes Hx Now: No Are you currently on any form of Control: No Pain Present Currently: No Pain Scale Used: Montes-Diallo/Numerical Pain scale:: 0 Smoking Status Smoking Status: Never smoker 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 Menopausal: Yes If menopausal, at what age did it occur: 60 Currently sexually active: No If not currently sexually active, have you ever been sexually active: Yes 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 1. Little interest or pleasure in doing things: not at all 2. Feeling down, depressed, or hopeless: not at all Total score: 0 PHQ-9 3. Trouble falling or staying asleep, or sleeping too much: Not at all 4. Feeling tired or having little energy: Not at all 5. Poor appetite or overeating: Not at all 6. Feeling bad about yourself - or that you are a failure or have let yourself or your family down: Not at all 7. Trouble concentrating on things, such as reading the newspaper or watching television: Not at all 8. Moving or speaking so slowly that other people could have noticed? - Or the opposite - being so fidgety or restless that you have been moving around a lot more than usual: not at all 9. Thoughts that you would be better off or of hurting yourself in some way: Not at all Total score: 0 Source: Developed by Drs. Momo Russell, Latoya Flores, Pradeep Alvarado and colleagues, with an educational miley from [employer]. Depression screen completed yes Social History Living Situation History Marital Status: Lives With: Family Housing: House Tobacco History Smoking Status: Never smoker Alcohol History Alcohol Intake: Never Domestic Abuse History Do You Feel Safe at Home: Yes History of Present Illness HPI Narrative Edie Rizo presents with bothersome menopausal symptoms, specifically really bad night sweats, which is her primary reason for today's visit. She underwent hysteroscopy and endometrial ablation in May 2020, approximately one and a half years ago, with surgical pathology showing inactive endometrium, negative for hyperplasia or malignancy. She has not been seen in the office since her post-operative period, during which she experienced soreness and intermittent bleeding. Since her ablation procedure, she reports no bleeding and states her uterus has been okay. She was previously taking a cardiac medication prescribed by her heart doctor, but after switching doctors, she was told to stop taking it and is currently not on any cardiac medications. She denies taking anything for diabetes or high blood pressure. She has had a mammogram within the last year which was normal, but has not recently had thyroid testing. She is a 60-year-old woman. She has not been seen in the office since her post-operative period following her endometrial ablation procedure. ROS: Positive for night sweats. Negative for bleeding since endometrial ablation. Exam General General Appearance: alert, in no apparent distress and healthy appearing Head Head exam: atraumatic Neck Neck exam: Present normal inspection and trachea midline Chest Chest inspection: Present normal inspection and symmetric chest wall rise External exam: Present normal external exam; Absent tenderness Neuro Neurological exam: Present oriented X3 Psych Psychiatric exam: Present normal affect and normal mood Office Procedures [facility] LOC & Office Proc's Nursing/Assessment Patient Status: Established Patient OB Clinic Nursing Assessment: Medication Reconciliation, Update PMH in EMR and Vital Signs OB Clinic Coordination of Care: Complex Care and Chronic Disease 1-5, Consent,records obtained, informed consent, Education Simp Pt/Fam, Lab and Imaging orders, Results/Orders obtained and Staff clarify orders Established Patient Charge Established Patient Point Assignment: 105 Established Patient Point Charge: EP Level 3 (80-115) Assessment & Plan Diagnosis / Problem List (1) Intramural leiomyoma of uterus: Status: Acute (2) Menopausal flushing: Status: Acute Plan Menopause symptoms: - Severe night sweats consistent with menopausal vasomotor symptoms. - 60-year-old female with history of endometrial ablation in May 2024. - No bleeding since procedure with surgical pathology showing inactive endometrium negative for hyperplasia or malignancy. Plan: - Start low-dose hormone therapy in pill form for 3 months. - Order basic laboratory studies including thyroid function and ovarian hormones. - Order pelvic ultrasound to reassess uterine measurements and fibroids. - Prescription sent to [facility]. - Follow-up in 3 months to assess symptom improvement and adjust dosing as needed. - Will call patient if any laboratory results are abnormal before scheduled follow-up.
[2025-09-10 10:36] VITALS: BP 138/80; PULSE 67; RESP 14; TEMP 36.4; O2SAT 96
== END 2025-09-10 10:56 | disposition home or self-care (01) ==
LOC: HODSOBC 09:54
PROVIDERS: Supervising Provider Obstetrics & Gynecology; Visit Provider Obstetrics & Gynecology
DX: D25.1 Intramural leiomyoma of uterus (principal); N95.1 Menopausal and female climacteric states; R23.2 Flushing; R61 Generalized hyperhidrosis; I10 Essential (primary) hypertension; Z91.041 Radiographic dye allergy status
CPT/HCPCS: 99213; G0463

== ENCOUNTER → 2025-09-10 | Outpatient (CLI) | payer MEDICARE, MEDICAID, SELFPAY ==
[2025-09-10 12:26] LABS: Follicle Stimulating Hormone 58.45 mIU/mL (See Note); Thyroid Stimulating Hormone 2.93 uIU/mL (0.55-4.78)
== END | disposition home or self-care (01) ==
PROVIDERS: PCP Obstetrics & Gynecology; Referring Provider Obstetrics & Gynecology; Visit Provider Obstetrics & Gynecology
DX: N95.1 Menopausal and female climacteric states (principal)
CPT/HCPCS: 36415; 83001; 84443

== ENCOUNTER → 2025-10-08 | Outpatient (CLI) | payer MEDICARE, MEDICAID, SELFPAY ==
--- NOTE | 2025-10-08 15:30 | XR_ITS ---
Examination: Pelvic ultrasound, transabdominal, complete Technique: Transabdominal ultrasound of the pelvis performed using grayscale imaging Date and time of exam: October 08, 2025, 1431 hours INDICATIONS: Vaginal bleeding several years, history uterine fibroid degeneration. FINDINGS: Uterus 8.9 cm Uterine fundal mass 3.4 x 2.8 x 2.3 cm Endometrial stripe 0.2 cm Right ovary 2.4 cm arterial flow Left ovary not visualized IMPRESSION: Uterine probable fibroid degeneration 3.4 x 2.8 x 2.3 cm, consider 6-month follow-up transvaginal pelvic sonography
== END | disposition home or self-care (01) ==
PROVIDERS: PCP Family Medicine; Referring Provider Obstetrics & Gynecology; Visit Provider Obstetrics & Gynecology
DX: N85.9 Noninflammatory disorder of uterus, unspecified (principal)
CPT/HCPCS: 76856

== ENCOUNTER 2025-10-20 13:43 | Outpatient (AMB) | payer MEDICARE, MEDICAID, SELFPAY ==
--- NOTE | 2025-10-20 13:49 | PD.URODRB ---
Intake Intake Visit Data Collection Pain Present Currently: No Pain scale:: 0 For Telemed visit only Telemed Video/Phone Visit: Yes Verbal consent obtained for Telemed visit?: Yes Verbal Consent witness name: JESUS Telemed Video/Phone visit w/Clinical Staff: 21-30 min Immunizations / Flu Flu Vaccine in the Last 12 Months: No Flu Vaccine Exclusion Criteria: No Exclusion Criteria Smoking Status Smoking Status: Never smoker Questionnaires Social History Living Situation History Lives With: Family Housing: House Tobacco History Smoking Status: Never smoker Alcohol History Alcohol Intake: Never Review of Systems Report any current symtoms Select symptoms you are currently experiencing: Past Medical History Past Medical History Have you ever been diagnosed with any of the following: Neurological Problems Seizures: No Migraine: Yes Cardiology Problems Hypercholesterolemia: Yes Congestive Heart Failure: No Edema: No Cellulitis: No Hypertension: Yes Respiratory Problems Chronic Obstructive Pulmonary Disease (COPD): No Asthma: Yes Bronchitis: Yes Pneumonia: Yes Tuberculosis: Yes Sleep Apnea: Yes Stomache/Intestinal Problems Hepatitis: No Diverticulitis: Yes Diverticulosis: Yes Gastroesophageal Reflux Disease: Yes Obesity: Yes Genital/Urinary Problems Renal Disease: No Reproductive Problems Pelvic Inflammatory Disease: No Previous Pregnancies: Yes Musculoskeletal Problems Arthritis: Yes Degenerative Disk Disease: Yes Endocrine Problems Diabetes Mellitus Type 1: No Diabetes Mellitus Type 2: No Blood Problems Anemia: Yes Sickle Cell Disease: No Psychologic Problems Anxiety: Yes Other Problems Hospitalization: Yes Shingles: No Falls: No Blood Transfusions: No Blood Transfusion Reaction: No Anesthesia Reactions: No Chemotherapy: No Radiation Therapy: No MRSA: No Chicken Pox: Yes Measles: No Mumps: No Cancer: No Surgical History Pacemaker: No Office Procedures [facility] Level of Care Nursing/Assessment Patient Status: Established Patient Nursing Assessment/Reassessment: Medication Reconciliation, Update PMH in EMR and Vital Signs Coordination of Care: Complex Care and Chronic Disease 1-5, Education Complex Pt/Fam, Consent,records obtained, informed consent and Ref for ancillary service Established Patient Charge Established Patient Point Assignment: 100 Telehealth Telemed Phone/Video with patient at home & ,PA,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
== END 2025-10-20 13:50 | disposition home or self-care (01) ==
LOC: HODAHC 13:43
PROVIDERS: PCP Student in an Organized Health Care Education/Training Program; Referring Provider Student in an Organized Health Care Education/Training Program; Supervising Provider Internal Medicine; Visit Provider Student in an Organized Health Care Education/Training Program
DX: Z76.0 Encounter for issue of repeat prescription (principal)
CPT/HCPCS: 99212; G0463